=== PATIENT | female | born 1930 | race Caucasian/White ===

== ENCOUNTER 2019-06-15 14:59 | Emergency (ER) | payer OTHER ==
--- NOTE | 2019-06-15 15:04 | PDOC ---
Rapid Medical Evaluation Chief Complaint: Weakness Medical Evaluation: Allergies Allergy/AdvReac Type Severity Reaction Status Date / Time No Known Drug Allergies Allergy Verified 08/13/15 16:07 06/15/19 15:02 Patient had brief in-person examination in triage cc: bilateral ankle swelling x 3 dayswith nausea, abdominal bloating and tiredness HPI: alert and oriented x 3 unlabored breathing +2 bipedal edema orders: labs ordered This patient will proceed to ed for further evaluation Discharge Disposition - Diagnosis Ankle swelling - Referrals - Patient Instructions - Post Discharge Activity
[2019-06-15 15:05] VITALS: BMI 20.1
[2019-06-15 15:44] LABS: BASO % 0.7 % (0-2.0); EOS % 2.4 % (0-4.5); HEMATOCRIT 28.9 % (32.4-45.2); HEMOGLOBIN 9.8 GM/dL (10.7-15.3); MCH 33.4 pg (25.7-33.7); MCHC 33.9 g/dl (32.0-36.0); MEAN CELL VOLUME 98.6 fl (80-96); MEAN PLT VOLUME 8.6 fl (7.5-11.1); MONO % 10.5 % (3.8-10.2); NEUT % 63.4 % (42.8-82.8); PLATELET COUNT 212 K/MM3 (134-434); RBC 2.93 M/mm3 (3.60-5.2); RDW 12.6 % (11.6-15.6); WHITE BLOOD COUNT 5.5 K/mm3 (4.0-10.0)
[2019-06-15 16:09] LABS: ALBUMIN 3.8 g/dl (3.4-5.0); BILIRUBIN,TOTAL 0.4 mg/dL (0.2-1); BLOOD UREA NITROGEN 13.1 mg/dL (7-18); CALCIUM 8.8 mg/dL (8.5-10.1); POTASSIUM 3.6 mmol/L (3.5-5.1); TOT PROT 6.2 g/dl (6.4-8.2)
[2019-06-15 16:22] LABS: N-TERMINAL BNP 740.5 pg/ml (5-450)
[2019-06-15] MEDS ORDERED: ONDANSETRON 4 MG/2 ML VIAL IVPUSH ONE (16:32)
[2019-06-15] MEDS ORDERED: ONDANSETRON 4 MG/2 ML VIAL ONE (16:51)
--- NOTE | 2019-06-15 17:15 | PDOC ---
Documentation entered by Nisha Mojica SCRIBE, acting as scribe for Ariana Rosenthal MD. Ariana Rosenthal MD: This documentation has been prepared by the Galina melara Xhesika, SCRIBE, under my direction and personally reviewed by me in its entirety. I confirm that the documentation accurately reflects all work, treatment, procedures, and medical decision making performed by me. Attending Attestation - Resident Resident Name: Nicole Ratliff - ED Attending Attestation I have performed the following: I have examined & evaluated the patient, The case was reviewed & discussed with the resident, I agree w/resident's findings & plan, Exceptions are as noted - HPI HPI: 06/15/19 17:04 The patient is an 88 year old female with a significant PMH of hyperlipidemia, NIDDM, GERD, diverticulosis, and thyroid disease who presents to the emergency department for generalized weakness and diffuse abdominal pain for the past couple days. Patient states she endorses associated nausea and b/l ankle edema. Patient notes she is normally constipated, however, she took laxative and is still endorsing abdominal bloating. The patient denies chest pain, shortness of breath, headache and dizziness. Denies fever, chills, cough, vomiting, diarrhea and constipation. Denies dysuria , frequency, urgency and hematuria. Allergies: NKDA - Physicial Exam PE: GENERAL: Awake, alert, and fully oriented, in no acute distress HEAD: No signs of trauma EYES: PERRLA, EOMI, sclera anicteric, conjunctiva clear ENT: Auricles normal inspection, hearing grossly normal, nares patent, oropharynx clear without exudates. Moist mucosa NECK: Normal ROM, supple, no lymphadenopathy, JVD, or masses LUNGS: Breath sounds equal, clear to auscultation bilaterally. No wheezes, and no crackles HEART: Regular rate and rhythm, normal S1 and S2, no murmurs, rubs or gallops ABDOMEN: Soft, +BLQ tenderness, normoactive bowel sounds. No guarding, no rebound. No masses EXTREMITIES: Normal range of motion, 1+ pitting edema B/L ankles. No clubbing or cyanosis. No cords, erythema, or tenderness NEUROLOGICAL: Cranial nerves II through XII grossly intact. Normal speech, normal gait. Motor and sensation intact SKIN: Warm, dry, normal turgor, no rashes or lesions noted. - Medical Decision Making 06/15/19 16:35 Pt with minimal swelling to ankles B/L, but no SOB, cp. Also with lower abdominal tenderness and bloating, history of prior adhesions from appendectomy. Will plan on CT a/p to r/o SBO.
--- NOTE | 2019-06-15 18:37 | PDOC ---
History of Present Illness - General Chief Complaint: Weakness Stated Complaint: SENT BY PCP/WEAKNESS/EDEMA Time Seen by Provider: 06/15/19 15:40 History Source: Patient Exam Limitations: No Limitations - History of Present Illness Initial Comments: Pt is an 88 yo F, with PMH of colitis/ischemic bowel, HTN, DM, hypothyroidism, and CKD, who presents with LE edema, generalized fatigue, nausea, and abdominal bloating. Pt states she ran out of her levothyroxine 2 days ago, but endorses compliance of other home medication. Pt has been tolerating PO food and fluid intake, but has been eating less due to concern that she will have vomiting. Pt has constipation at baseline, and took a laxative 2 days ago which has given her small loose stools each day. Pt denies any fevers/chills, headache, vision changes, syncope, chest pain, palpitations, SOB, vomiting, abdominal pain, urinary symptoms, or leg swelling. Allergies: NKDA PCP: [facility] Social: Pt denies any cigarette, alcohol, or drug use. Pt denies any recent travel or sick contacts. Surgical: appendectomy and repair of adhesions (age 9 and 13, respectively) Family: no relevant history. 06/17/19 04:44 Past History - Travel Traveled outside of the country in the last 30 days: No Close contact w/someone who was outside of country & ill: No - Past Medical History Allergies/Adverse Reactions: Allergies Allergy/AdvReac Type Severity Reaction Status Date / Time No Known Drug Allergies Allergy Verified 06/15/19 15:05 Home Medications: Ambulatory Orders Aspirin 81 mg PO DAILY 03/09/14 Atenolol [Tenormin -] 25 mg PO HS 03/09/14 Cholecalciferol (Vitamin D3) [Vitamin D3] 1,000 unit PO DAILY 03/09/14 Enalapril Maleate [Vasotec -] 2.5 mg PO DAILY 03/09/14 Ranolazine [Ranexa -] 500 mg PO BID 03/09/14 Ezetimibe [Zetia] 10 mg PO HS 04/22/14 Pravastatin Sodium 10 mg PO DAILY 04/22/14 Famotidine [Pepcid -] 20 mg PO DAILY 03/02/15 Sertraline HCl [Zoloft -] 25 mg PO HS 03/02/15 Glimepiride [Glimepiride -] 1 mg PO DAILY 08/13/15 Levothyroxine [Synthroid -] 88 mcg PO ASDIR 08/13/15 Levothyroxine [Synthroid -] 75 mcg PO ASDIR 04/16/16 Diclofenac Sodium 75 mg PO BID #60 tablet.dr SINGLETON 2 07/20/16 Anemia: No (IRON DEF) Asthma: No Cancer: No Cardiac Disorders: Yes (LEAKY VALVE) CVA: No COPD: No CHF: No Dementia: No Diabetes: Yes (NIDDM) GI Disorders: Yes (GERD/DIVERTICULOSIS) Disorders: No HTN: Yes Hypercholesterolemia: Yes Liver Disease: No Seizures: No Thyroid Disease: Yes - Surgical History Abdominal Surgery: Yes (ADHESIONS IN THE COLON) Appendectomy: Yes Cardiac Surgery: No Cholecystectomy: No Lung Surgery: No Neurologic Surgery: No Orthopedic Surgery: No - Suicide/Smoking/Psychosocial Hx Smoking Status: No Smoking History: Never smoked Have you smoked in the past 12 months: No Number of Cigarettes Smoked Daily: 0 If you are a former smoker, when did you quit?: 30YRS AGO Information on smoking cessation initiated: No Hx Alcohol Use: No Drug/Substance Use Hx: No Substance Use Type: None Hx Substance Use Treatment: No Review of Systems - Review of Systems Able to Perform ROS?: Yes Is the patient limited Polish proficient: No Constitutional: Yes: Malaise, Weight Stable. No: Chills, Diaphoresis, Fever, Loss of Appetite, Weakness HEENTM: No: Blurred Vision, Double Vision, Nose Congestion, Throat Pain, Throat Swelling, Difficulty Swallowing Respiratory: No: Cough, Orthopnea, Shortness of Breath Cardiac (ROS): No: Chest Pain, Edema, Irregular Heart Rate, Lightheadedness, Palpitations, Syncope, Chest Tightness ABD/GI: Yes: See HPI, Abdominal Distended, Constipated, Diarrhea, Nausea. No: Blood Streaked Bowels, Poor Appetite, Poor Fluid Intake, Rectal Bleeding, Vomiting, Abdominal cramping : No: Burning, Dysuria, Pain, Urgency Musculoskeletal: No: Back Pain, Muscle Pain, Muscle Weakness Integumentary: No: Rash Neurological: No: Headache, Weakness, Unsteady Gait, Dizziness Psychiatric: No: Sleep Pattern Change, Change in Appetite Endocrine: No: Increased Urine, Change in Weight Hematologic/Lymphatic: No: Anemia, Blood Clots, Easy Bleeding, Easy Bruising All Other Systems: Reviewed and Negative *Physical Exam - Vital Signs Last Vital Signs Temp Pulse Resp BP Pulse Ox 98.3 F 77 19 170/73 98 06/15/19 15:02 06/15/19 15:02 06/15/19 15:02 06/15/19 15:02 06/15/19 15:02 - Physical Exam Comments: Vitals stable, pt afebrile. Pt in NAD, thin body habitus. Pt alert and oriented x3. manager wound generally intact, muscular strength and sensation intact. No midline spinal tenderness, step-offs, or crepitus. Head normocephalic, atraumatic. Eyes PERRLA, EOMI. Oropharynx without erythema or exudates, no LAD b/l. No nasal congestion, hearing intact. Clear heart sounds, S1/S2, no JVD, b/l pedal edema, or heart murmur. Clear lung sounds, no respiratory distress, wheezes, crackles, or accessory muscle use. +Periumbilical TTP. No increased stool burden palpated. No CVA tenderness to palpation, no rebound, no guarding. Abdomen soft, non-distended, and with normoactive bowel sounds. Skin without jaundice or rash. 06/17/19 04:53 ED Treatment Course - LABORATORY CBC & Chemistry Diagram: 06/15/19 15:20 06/15/19 15:10 - ADDITIONAL ORDERS Additional order review: Laboratory Results 06/15/19 06/15/19 15:20 15:10 Sodium 146 H Potassium 3.6 Chloride 108 H Carbon Dioxide 32 Anion Gap 6 L BUN 13.1 Creatinine 1.0 Est GFR (CKD-EPI)AfAm 59.08 Est GFR (CKD-EPI)NonAf 50.97 Random Glucose 132 H Calcium 8.8 Total Bilirubin 0.4 AST 15 ALT 17 Alkaline Phosphatase 62 Troponin I < 0.02 B-Natriuretic Peptide 740.5 H Total Protein 6.2 L Albumin 3.8 06/15/19 15:20 RBC 2.93 L MCV 98.6 H MCHC 33.9 RDW 12.6 D MPV 8.6 Neutrophils % 63.4 Lymphocytes % 23.0 D Monocytes % 10.5 H Eosinophils % 2.4 Basophils % 0.7 - RADIOLOGY Radiology Studies Ordered: Category Date Time Status ABDOMEN & PELVIS CT WITH CONTR [CT] Stat CT Scan 06/15/19 16:32 Ordered CHEST X-RAY PORTABLE* [RAD] Stat Radiology 06/15/19 16:52 Ordered - Medications Given in the ED: ED Medications Discontinued Medications Generic Name Dose Route Start Last Admin Trade Name Vamsi PRN Reason Stop Dose Admin Ondansetron HCl 4 mg 06/15/19 16:32 06/15/19 17:09 Zofran Injection IVPUSH 06/15/19 16:33 4 mg ONCE ONE Administration Medical Decision Making - Medical Decision Making Pt was seen at bedside, also will be seen by attending Dr. Rosenthal. Pt presenting with abdominal "bloating" and nausea, multiple abdominal surgeries in the past. Will evaluate with labs and CT abd/pelvis with PO and IV contrast to r/o obstruction. Provided 4 mg IV zofran for improvement of nausea. Will continue to reassess pt and monitor for symptomatic improvement. ECG: NSR, intervals WNL. No TWIs or significant ST segment changes. No prior ECG for comparison. 06/17/19 04:53 Labs WNL Pt drank PO contrast, pending CT abd/pelvis. Pt endorsed to night team (Dr. Jorge) to f/u results. 06/17/19 04:55 *DC/Admit/Observation/Transfer Diagnosis at time of Disposition: Ankle swelling Qualifiers: Laterality: unspecified laterality Qualified Code(s): M25.473 - Effusion, unspecified ankle Constipation Qualifiers: Constipation type: unspecified constipation type Qualified Code(s): K59.00 - Constipation, unspecified - Discharge Dispostion Disposition: HOME Condition at time of disposition: Stable - Referrals Referrals: Geovani Rabago MD [Primary Care Provider] - - Patient Instructions Printed Discharge Instructions: DI for Constipation Additional Instructions: You were evaluated in the emergency department for abdominal pain and ankle swelling. We evaluated your heart, medical history, lab values, and scanned your abdomen. We believe that you are safe to go home at this time. There were no signs of obstruction on your CT scan. Please continue to take the miralax, stool softener for the constipation, and be sure to drink plenty of water and eat a high fiber diet to help move your bowels. Please follow up with your primary care doctor within the next week. Please return to the Emergency Department if you develop high fevers, sharp abdominal pain that is intractable , or if you feel dizzy, fatigued, or are unable to eat anything. - Post Discharge Activity
--- NOTE | 2019-06-15 21:11 | PDOC ---
History of Present Illness - General Chief Complaint: Weakness Stated Complaint: SENT BY PCP/WEAKNESS/EDEMA Time Seen by Provider: 06/15/19 15:40 History Source: Patient, Family Past History - Past Medical History Allergies/Adverse Reactions: Allergies Allergy/AdvReac Type Severity Reaction Status Date / Time No Known Drug Allergies Allergy Verified 06/15/19 15:05 Home Medications: Ambulatory Orders Aspirin 81 mg PO DAILY 03/09/14 Atenolol [Tenormin -] 25 mg PO HS 03/09/14 Cholecalciferol (Vitamin D3) [Vitamin D3] 1,000 unit PO DAILY 03/09/14 Enalapril Maleate [Vasotec -] 2.5 mg PO DAILY 03/09/14 Ranolazine [Ranexa -] 500 mg PO BID 03/09/14 Ezetimibe [Zetia] 10 mg PO HS 04/22/14 Pravastatin Sodium 10 mg PO DAILY 04/22/14 Famotidine [Pepcid -] 20 mg PO DAILY 03/02/15 Sertraline HCl [Zoloft -] 25 mg PO HS 03/02/15 Glimepiride [Glimepiride -] 1 mg PO DAILY 08/13/15 Levothyroxine [Synthroid -] 88 mcg PO ASDIR 08/13/15 Levothyroxine [Synthroid -] 75 mcg PO ASDIR 04/16/16 Diclofenac Sodium 75 mg PO BID #60 tablet.dr SINGLETON 2 07/20/16 Anemia: No (IRON DEF) Asthma: No Cancer: No Cardiac Disorders: Yes (LEAKY VALVE) CVA: No COPD: No CHF: No Dementia: No Diabetes: Yes (NIDDM) GI Disorders: Yes (GERD/DIVERTICULOSIS) Disorders: No HTN: Yes Hypercholesterolemia: Yes Liver Disease: No Seizures: No Thyroid Disease: Yes - Surgical History Abdominal Surgery: Yes (ADHESIONS IN THE COLON) Appendectomy: Yes Cardiac Surgery: No Cholecystectomy: No Lung Surgery: No Neurologic Surgery: No Orthopedic Surgery: No - Suicide/Smoking/Psychosocial Hx Smoking Status: No Smoking History: Never smoked Have you smoked in the past 12 months: No Number of Cigarettes Smoked Daily: 0 If you are a former smoker, when did you quit?: 30YRS AGO Information on smoking cessation initiated: No Hx Alcohol Use: No Drug/Substance Use Hx: No Substance Use Type: None Hx Substance Use Treatment: No *Physical Exam - Vital Signs Last Vital Signs Temp Pulse Resp BP Pulse Ox 98.3 F 77 19 170/73 98 06/15/19 15:02 06/15/19 15:02 06/15/19 15:02 06/15/19 15:02 06/15/19 15:02 ED Treatment Course - LABORATORY CBC & Chemistry Diagram: 06/15/19 15:20 06/15/19 15:10 - ADDITIONAL ORDERS Additional order review: Laboratory Results 06/15/19 06/15/19 15:20 15:10 Sodium 146 H Potassium 3.6 Chloride 108 H Carbon Dioxide 32 Anion Gap 6 L BUN 13.1 Creatinine 1.0 Est GFR (CKD-EPI)AfAm 59.08 Est GFR (CKD-EPI)NonAf 50.97 Random Glucose 132 H Calcium 8.8 Total Bilirubin 0.4 AST 15 ALT 17 Alkaline Phosphatase 62 Troponin I < 0.02 B-Natriuretic Peptide 740.5 H Total Protein 6.2 L Albumin 3.8 06/15/19 15:20 RBC 2.93 L MCV 98.6 H MCHC 33.9 RDW 12.6 D MPV 8.6 Neutrophils % 63.4 Lymphocytes % 23.0 D Monocytes % 10.5 H Eosinophils % 2.4 Basophils % 0.7 - Medications Given in the ED: ED Medications Discontinued Medications Generic Name Dose Route Start Last Admin Trade Name Julianq PRN Reason Stop Dose Admin Ondansetron HCl 4 mg 06/15/19 16:32 06/15/19 17:09 Zofran Injection IVPUSH 06/15/19 16:33 4 mg ONCE ONE Administration *DC/Admit/Observation/Transfer Diagnosis at time of Disposition: Ankle swelling Qualifiers: Laterality: unspecified laterality Qualified Code(s): M25.473 - Effusion, unspecified ankle Constipation Qualifiers: Constipation type: unspecified constipation type Qualified Code(s): K59.00 - Constipation, unspecified - Discharge Dispostion Disposition: HOME Condition at time of disposition: Stable Decision to Admit order: No - Referrals Referrals: Geovani Rabago MD [Primary Care Provider] - - Patient Instructions Printed Discharge Instructions: DI for Constipation Additional Instructions: You were evaluated in the emergency department for abdominal pain and ankle swelling. We evaluated your heart, medical history, lab values, and scanned your abdomen. We believe that you are safe to go home at this time. There were no signs of obstruction on your CT scan. Please continue to take the miralax, stool softener for the constipation, and be sure to drink plenty of water and eat a high fiber diet to help move your bowels. Please follow up with your primary care doctor within the next week. Please return to the Emergency Department if you develop high fevers, sharp abdominal pain that is intractable , or if you feel dizzy, fatigued, or are unable to eat anything. - Post Discharge Activity
[2019-06-15 21:32] VITALS: BP 163/78; PULSE 88; TEMP 98.5
--- NOTE | 2019-06-16 05:21 | PDOC ---
*Physical Exam - Vital Signs Last Vital Signs Temp Pulse Resp BP Pulse Ox 98.5 F 88 19 163/78 98 06/15/19 21:31 06/15/19 21:31 06/15/19 21:31 06/15/19 21:31 06/15/19 15:02 ED Treatment Course - LABORATORY CBC & Chemistry Diagram: 06/15/19 15:20 06/15/19 15:10 - ADDITIONAL ORDERS Additional order review: 06/15/19 15:20 RBC 2.93 L MCV 98.6 H MCHC 33.9 RDW 12.6 D MPV 8.6 Neutrophils % 63.4 Lymphocytes % 23.0 D Monocytes % 10.5 H Eosinophils % 2.4 Basophils % 0.7 - Medications Given in the ED: ED Medications Discontinued Medications Generic Name Dose Route Start Last Admin Trade Name Freq PRN Reason Stop Dose Admin Ondansetron HCl 4 mg 06/15/19 16:32 06/15/19 17:09 Zofran Injection IVPUSH 06/15/19 16:33 4 mg ONCE ONE Administration Medical Decision Making - Medical Decision Making Sign out received from Dr. Ratliff. 88 y/o F with hx HTN, CKD, DM, hypothyroidism, prior abdominal surgery including adhesion lysis at age 13 s/p appendectomy p/w bloating, nausea, abdominal pain for two days. CT abdomen pelvis pending due to concern for obstruction. Baseline constipation, small loose stools for past two days. PO contrast administered at 1700. Hg baseline at 9.8. Plan: - CT abdomen/pelvis with oral/IV contrast - Fluid resuscitation if obstructive process on CT. - given Na 146, will replenish with LR or 1/2 NS if needed - If no obstructive process on CT, plan for discharge home. --- CT abdomen/pelvis negative for acute process. Discussed constipation management including continuing maalox, stool softeners, as well as high fiber diet and remaining hydrated. Plan for discharge home. *DC/Admit/Observation/Transfer Diagnosis at time of Disposition: Ankle swelling Qualifiers: Laterality: unspecified laterality Qualified Code(s): M25.473 - Effusion, unspecified ankle Constipation Qualifiers: Constipation type: unspecified constipation type Qualified Code(s): K59.00 - Constipation, unspecified - Discharge Dispostion Disposition: HOME Condition at time of disposition: Stable Decision to Admit order: No - Referrals Referrals: Geovani Rabago MD [Primary Care Provider] - - Patient Instructions Printed Discharge Instructions: DI for Constipation Additional Instructions: You were evaluated in the emergency department for abdominal pain and ankle swelling. We evaluated your heart, medical history, lab values, and scanned your abdomen. We believe that you are safe to go home at this time. There were no signs of obstruction on your CT scan. Please continue to take the miralax, stool softener for the constipation, and be sure to drink plenty of water and eat a high fiber diet to help move your bowels. Please follow up with your primary care doctor within the next week. Please return to the Emergency Department if you develop high fevers, sharp abdominal pain that is intractable , or if you feel dizzy, fatigued, or are unable to eat anything. - Post Discharge Activity
--- NOTE | 2019-06-16 09:30 | EKG ---
Test Reason : Blood Pressure : / mmHG Vent. Rate : 071 BPM Atrial Rate : 071 BPM P-R Int : 176 ms QRS Dur : 084 ms QT Int : 418 ms P-R-T Axes : 103 008 051 degrees QTc Int : 454 ms NORMAL SINUS RHYTHM SEPTAL INFARCT , AGE UNDETERMINED ABNORMAL ECG Confirmed by Jorge Veloz MD ([id number]) on 06/16/2019 9:30:08 AM Referred By: Confirmed By:Jorge Veloz MD
== END 2019-06-15 21:10 | disposition home or self-care (01) ==
LOC: JER 14:59
PROC: 3E033GC Introduction of Other Therapeutic Substance into Peripheral Vein, Percutaneous Approach (ICD-10-PCS; principal; 2019-06-15)
DX: K59.00 Constipation, unspecified (principal); M25.471 Effusion, right ankle; M25.472 Effusion, left ankle; I12.9 Hypertensive chronic kidney disease with stage 1 through stage 4 chronic kidney disease, or unspecified chronic kidney disease; E11.22 Type 2 diabetes mellitus with diabetic chronic kidney disease; N18.9 Chronic kidney disease, unspecified; Z79.4 Long term (current) use of insulin; E78.00 Pure hypercholesterolemia, unspecified; E03.9 Hypothyroidism, unspecified; D50.9 Iron deficiency anemia, unspecified
CPT/HCPCS: 36415; 74177-TC; 80053; 83880; 84484; 85025; 93005; 93010; 96374; 99282-25

== ENCOUNTER 2019-09-04 17:33 | Inpatient (IN) | payer OTHER ==
--- NOTE | 2019-09-04 17:52 | PDOC ---
Rapid Medical Evaluation Chief Complaint: Injury Time Seen by Provider: 09/04/19 17:45 Medical Evaluation: Allergies Allergy/AdvReac Type Severity Reaction Status Date / Time No Known Drug Allergies Allergy Verified 06/15/19 15:05 09/04/19 17:45 88 year old female unwitnessed fall at home, daughter reports that patient does not remember how she fell. patient reports hitting head and neck. bruising to left hand daughter reports that fall was 1 hour ago. PE: Patient alert ox3 A: elderly fall; head injury P: ct head/ c-spine left hand xray labs Discharge Disposition - Diagnosis Unwitnessed fall, Neck pain Head injury Qualifiers: Encounter type: initial encounter Qualified Code(s): S09.90XA - Unspecified injury of head, initial encounter - Referrals - Patient Instructions - Post Discharge Activity
--- NOTE | 2019-09-04 18:16 | PDOC ---
History of Present Illness - General Chief Complaint: Injury Stated Complaint: FALL Time Seen by Provider: 09/04/19 17:45 - History of Present Illness Initial Comments: 09/04/19 19:28 88 year old woman with a history of colitis, ischemic bowel, HTN, DM, hypothyroidism, CKD who presents with unwitnessed fall that occurred prior to arrival. She was found down in the basement withou any recollection of the fall. The patient was alone for approx 1 hour [facility]. The patient only complains L hand pain with brusing and hematoma and neck pain. The patient does not recall her symptoms at the time of the episode but currently denies chest pain, shortness of breath, abdominal pain, recent fever, dysuria, hematuria. diarrhea, constipation ROS GENERAL/CONSTITUTIONAL: No fever or chills. No weakness. CARDIOVASCULAR: No chest pain or shortness of breath RESPIRATORY: No cough, wheezing, or hemoptysis. GASTROINTESTINAL: No nausea, vomiting, diarrhea or constipation. GENITOURINARY: No dysuria, frequency, or change in urination. MUSCULOSKELETAL: + joint or muscle swelling or pain. + neck or back pain. SKIN: No rash NEUROLOGIC: No headache, vertigo, + possible loss of consciousness, or change in strength/sensation. GENERAL: Awake, alert, and fully oriented, in no acute distress HEAD: No signs of trauma, normocephalic, atraumatic EYES: PERRLA, EOMI, sclera anicteric, conjunctiva clear ENT: oropharynx clear without exudates. Moist mucosa NECK: Normal ROM, supple LUNGS: No distress, speaks full sentences, clear to auscultation bilaterally HEART: Regular rate and rhythm, normal S1 and S2, no murmurs, rubs or gallops, peripheral pulses normal and equal bilaterally. ABDOMEN: Soft, nontender No guarding, no rebound. No masses EXTREMITIES : Normal inspection, Normal range of motion, no edema. No clubbing or cyanosis. NEUROLOGICAL: Cranial nerves II through XII grossly intact. Normal speech, no focal sensorimotor deficits SKIN: Warm, Dry, normal turgor, no rashes or lesions noted MDM DDX including but not limited to: r/o acs vs infectious vs electroylte r/o fx vs intracranil bleed ED Course: labs significant for hypokalemia repletion with po and iv ekg: nsr at 70bpm, no st elevation, QTc at 373 no prior to compare patient with recurrent on pain onreassessment CT head and cervical spine negative will give toradol, lido patch pelvis, cxr, L hand xr with no acute pathology, fx or dislocation plan for admission for syncope, falls, hypokalemia Maggie Badillo, PGY2 Emergency Medicine Past History - Past Medical History Allergies/Adverse Reactions: Allergies Allergy/AdvReac Type Severity Reaction Status Date / Time No Known Drug Allergies Allergy Verified 09/04/19 17:45 Home Medications: Ambulatory Orders Aspirin 81 mg PO DAILY 03/09/14 Enalapril Maleate [Vasotec -] 2.5 mg PO DAILY 03/09/14 Ranolazine [Ranexa -] 500 mg PO BID 03/09/14 Ezetimibe [Zetia] 10 mg PO HS 04/22/14 Famotidine [Pepcid -] 20 mg PO BID 03/02/15 Cholecalciferol (Vitamin D3) [Vitamin D3] 25 mcg PO DAILY 09/04/19 Furosemide [Lasix -] 20 mg PO DAILY 09/04/19 Levothyroxine [Synthroid -] 50 mcg PO DAILY 09/04/19 Metoprolol Succinate [Toprol Xl] 25 mg PO DAILY 09/04/19 Pioglitazone HCl [Actos] 15 mg PO DAILY 09/04/19 Rosuvastatin [Crestor -] 5 mg PO HS 09/04/19 Anemia: No (IRON DEF) Asthma: No Cancer: No Cardiac Disorders: Yes (LEAKY VALVE) CVA: No COPD: No CHF: No Dementia: No Diabetes: Yes (NIDDM) GI Disorders: Yes (GERD/DIVERTICULOSIS) Disorders: No HTN: Yes Hypercholesterolemia: Yes Liver Disease: No Seizures: No Thyroid Disease: Yes - Surgical History Abdominal Surgery: Yes (ADHESIONS IN THE COLON) Appendectomy: Yes Cardiac Surgery: No Cholecystectomy: No Lung Surgery: No Neurologic Surgery: No Orthopedic Surgery: No - Immunization History Immunization Up to Date: Yes - Psycho Social/Smoking Cessation Hx Smoking Status: No Smoking History: Never smoked Have you smoked in the past 12 months: No Number of Cigarettes Smoked Daily: 0 If you are a former smoker, when did you quit?: 30YRS AGO Hx Alcohol Use: No Drug/Substance Use Hx: No Substance Use Type: None Hx Substance Use Treatment: No *Physical Exam - Vital Signs Last Vital Signs Temp Pulse Resp BP Pulse Ox 98.1 F 69 16 218/74 H 98 09/04/19 17:46 09/04/19 17:46 09/04/19 17:46 09/04/19 17:46 09/04/19 17:46 ED Treatment Course - LABORATORY CBC & Chemistry Diagram: 09/04/19 18:11 09/04/19 18:11 - RADIOLOGY Radiology Studies Ordered: Category Date Time Status PELVIS [RAD] Stat Radiology 09/04/19 18:14 Ordered Discharge - Discharge Information Problems reviewed: Yes Clinical Impression/Diagnosis: Unwitnessed fall, Neck pain, Hypokalemia Head injury Qualifiers: Encounter type: initial encounter Qualified Code(s): S09.90XA - Unspecified injury of head, initial encounter Condition: Stable - Admission Yes - Follow up/Referral Referrals: Stuart Davis MD [Primary Care Provider] - - Patient Discharge Instructions - Post Discharge Activity
[2019-09-04 18:45] LABS: BASO % 0.9 % (0-2.0); EOS % 2.7 % (0-4.5); HEMATOCRIT 33.2 % (32.4-45.2); HEMOGLOBIN 11.1 GM/dL (10.7-15.3); LYMPH % 19.4 % (8-40); MCH 32.3 pg (25.7-33.7); MCHC 33.4 g/dl (32.0-36.0); MEAN CELL VOLUME 96.5 fl (80-96); MEAN PLT VOLUME 9.1 fl (7.5-11.1); MONO % 11.5 % (3.8-10.2); NEUT % 65.5 % (42.8-82.8); PLATELET COUNT 231 K/MM3 (134-434); RBC 3.44 M/mm3 (3.60-5.2); RDW 12.3 % (11.6-15.6); WHITE BLOOD COUNT 5.9 K/mm3 (4.0-10.0)
[2019-09-04] MEDS ORDERED: ACETAMINOPHEN 325 MG TABLET (FP) PO ONE (19:11)
[2019-09-04 19:17] LABS: ALBUMIN 3.9 g/dl (3.4-5.0); ALK PHOS 69 U/L (45-117); ANION GAP 6 MMOL/L (8-16); BILIRUBIN,TOTAL 0.4 mg/dL (0.2-1); BLOOD UREA NITROGEN 12.4 mg/dL (7-18); CALCIUM 8.9 mg/dL (8.5-10.1); CHLORIDE 100 mmol/L (98-107); CO2 36 mmol/L (21-32); CREATININE 0.8 mg/dL (0.55-1.3); GLUCOSE,RANDOM 134 mg/dL (74-106); SGOT/AST 13 U/L (15-37); SGPT/ALT 16 U/L (13-61); SODIUM 141 mmol/L (136-145); TOT PROT 6.5 g/dl (6.4-8.2)
[2019-09-04 19:22] LABS: POTASSIUM 2.7 mmol/L (3.5-5.1)
[2019-09-04] MEDS ORDERED: POTASSIUM CHLORIDE TABS 10 MEQ TABLET.ER (FP) PO ONE (19:23)
[2019-09-04] MEDS ORDERED: POTASSIUM CHLORIDE 20 MEQ PREMIX IVPB 100 ML IVPB ONE (19:28)
[2019-09-04] MEDS ORDERED: METHOCARBAMOL 500 MG TABLET PO ONE (20:25)
[2019-09-04] MEDS ORDERED: LIDOCAINE 5% TOPICAL PATCH TP ONE (20:25)
[2019-09-04] MEDS ORDERED: KETOROLAC TROMETHAMINE 15 MG/ML VIAL IVPUSH ONE (20:25)
[2019-09-04] MEDS ORDERED: METHOCARBAMOL 500 MG TABLET ONE (21:27)
[2019-09-04] MEDS ORDERED: ACETAMINOPHEN 325 MG TABLET (FP) ONE (21:27)
[2019-09-04] MEDS ORDERED: KETOROLAC TROMETHAMINE 15 MG/ML VIAL ONE (21:28)
[2019-09-04] MEDS ORDERED: POTASSIUM CHLORIDE TABS 20 MEQ TABLET.ER (FP) PO ONE (21:28)
[2019-09-04] MEDS ORDERED: KCL IVPB ONE (21:29)
[2019-09-04 22:05] LABS: MAGNESIUM 1.9 mg/dL (1.8-2.4); PHOSPHOROUS 2.7 mg/dL (2.5-4.9)
[2019-09-04] MEDS: LIDOCAINE PATCH REMOVAL MC SCH (22:38)
[2019-09-05] MEDS ORDERED: SODIUM CHLORIDE 1,000 ML IV SCH (01:00)
--- NOTE | 2019-09-05 01:12 | PN ---
Teaching Attending Note Name of Resident: Ivana Machuca ATTENDING PHYSICIAN STATEMENT I saw and evaluated the patient. I reviewed the resident's note and discussed the case with the resident. I agree with the resident's findings and plan as documented. SUBJECTIVE: 88 year old woman with a history of ischemic bowel, HTN, DM, hypothyroidism, CKD presents status post fall on 09/04/2019. Limited recollection about fall from patient. Generally a very poor historian. Fall was unwitnessed, Suspected to have possibly hit her head during her fall. OBJECTIVE: Last Vital Signs Temp Pulse Resp BP Pulse Ox 98.1 F 73 17 195/73 H 99 09/04/19 17:46 09/05/19 00:28 09/05/19 00:28 09/05/19 00:28 09/05/19 00:28 GENERAL: Elderly, frail, not in acute distress HEENT: Normocephalic, atraumatic. PERRLA, EOMI. No conjunctival pallor. Sclera are non- icteric. Moist mucous membranes. NECK: Supple. Full ROM. No JVD. Carotid pulses 2+ and symmetric, without bruits. No thyromegaly. No lymphadenopathy. CARDIOVASCULAR: Regular rate and rhythm. No murmurs, rubs, or gallops. Distal pulses are 2+ and symmetric. PULMONARY: No evidence of respiratory distress. Lungs clear to auscultation bilaterally. No wheezing, rales or rhonchi. ABDOMINAL: Soft. Non-tender. Non-distended. No rebound or guarding. No organomegaly. Normoactive bowel sounds. MUSCULOSKELETAL Normal range of motion at all joints. No bony deformities or tenderness. No CVA tenderness. EXTREMITIES: Left hand swelling, ecchymosis SKIN: Warm and dry. Normal capillary refill. No rashes. No jaundice. PSYCHIATRIC: Cooperative. Good eye contact. Appropriate mood and affect. Abnormal Lab Results 09/04/19 09/04/19 09/05/19 18:11 18:11 00:19 RBC 3.44 L MCV 96.5 H Monocytes % 11.5 H Potassium 2.7 L* 3.1 L Carbon Dioxide 36 H Anion Gap 6 L Random Glucose 134 H AST 13 L Urine Nitrite Ur Leukocyte Esterase 09/05/19 01:17 RBC MCV Monocytes % Potassium Carbon Dioxide Anion Gap Random Glucose AST Urine Nitrite Positive H Ur Leukocyte Esterase 2+ H Imaging reviewed, head CT and C-spine CT did not show any evidence of fracture Left hand x-ray grossly negative for fracture on my review but no report available Pelvis x-ray was reviewed ASSESSMENT AND PLAN: 88-year-old woman status post fall with possible syncope, hypokalemia without any EKG changes. Imaging of head neck, pelvis, left hand grossly negative for fractures however should await official radiology reports Telemetry observation Bed rest and fall precautions Tylenol PRN for pain PT evaluation Follow-up official imaging study reports Transthoracic echo Check orthostatics #Hypokalemiaimproved to 3.1 after supplementation We will monitor on groundwater monitoring technician Supplement potassium until normalized #Abnormal mental statussuspect may be underlying dementia, unknown baseline. Head CT was negative for any acute findings, TSH was normal #Severe asymptomatic hypertensionnoted to be on furosemide, enalapril, Toprol- XL Resume home medications listed above If positive orthostatics would hold furosemide at this time Salt restriction Titrate medication dosage as needed #DVT prophylaxisheparin subcutaneously
[2019-09-05 01:28] LABS: HYALINE CASTS 3 /lpf (0-8); PH,URINE 7.5 (5.0-8.0); URINE APPEARANCE CLOUDY; URINE BACTERIA 1528.2 /hpf (NEGATIVE); URINE BILIRUBIN NEGATIVE (NEGATIVE); URINE COLOR YELLOW; URINE GLUCOSE (UA) NEGATIVE (NEGATIVE); URINE KETONE NEGATIVE (NEGATIVE); URINE LEUK ESTERASE 2+ (NEGATIVE); URINE NITRITE POSITIVE (NEGATIVE); URINE PROTEIN NEGATIVE (NEGATIVE)
[2019-09-05 01:29] LABS: POTASSIUM 3.1 mmol/L (3.5-5.1)
--- NOTE | 2019-09-05 01:34 | PDOC ---
Documentation entered by Kevin De Los Santos SCRIBE, acting as scribe for Veronica Mckinney MD. Veronica Mckinney MD: This documentation has been prepared by the Filiberto melara Daniel, SCRIBE, under my direction and personally reviewed by me in its entirety. I confirm that the documentation accurately reflects all work, treatment, procedures, and medical decision making performed by me. Attending Attestation - Resident Resident Name: Maggie Badillo - ED Attending Attestation I have performed the following: I have examined & evaluated the patient, The case was reviewed & discussed with the resident, I agree w/resident's findings & plan, Exceptions are as noted - HPI HPI: 09/04/19 19:24 The patient is a 88 year old females with a significant past medical history of colitis, ischemic bowel, diabetes, hypertension, hypothyroidism, and CKD who presents to the ED s/p fall, with left hand and neck pain. Patient was found in the basement 1 hour after her unwitnessed fall and states that she was unable to stand back up by herself. Patient also states that she does not remember falling. Patient is currently complaining of neck pain and left hand pain. Denies shortness of breath, chest pain, abdominal pain, dysuria. No illness, no recent travel. Allergies: NKDA - Physicial Exam PE: 09/05/19 01:31 awake alert nad head atraumatic. no mildline cervical spine tenderness. paraspinal cervical tenderness. lungs clear bilat heart rrr no mrg abd soft nt nd ext wwp. no edema. no calf tenderness. left hand with eccymosis dorsum of hand. - Medical Decision Making 09/05/19 01:32 88 yo s/p fall, possible syncope unknown loc. plan cxr egk labs ct head ct cervical spine. xrays negative for fracture of pelvis, cxr and left hand. all negative. admitted for telemetry ro dysrhtymia, for syncope. Heart Score/ECG Review #1 General ECG Interpretation: Sinus Rhythm, Normal Rate (70), Normal Intervals, No acute ischemic changes
--- NOTE | 2019-09-05 01:51 | HP ---
CHIEF COMPLAINT: s/p fall PCP: Dr. Frausto HISTORY OF PRESENT ILLNESS: 88F w/ pmhx of colitis, ischemic bowel, HTN, DM, hyperthyroidism, CKD presents in the ED s/p fall. Grandson present at bedside. Pt states she was going upstairs from the basement when she found herself sitting down on the steps. She does not remember if she fell, but she does recall getting up herself and walking up to the kitchen after this episode. Denies any fall episodes in the past. Denies any prodromal symptoms prior to the fall (murillo/d, vision changes, chest pain, sob, abd pain, tongue biting). When she woke up she noticed her L hand was bruised as well, but denied any pain on her L hand. 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 She was recently placed on a new medication for her pain, but does not recall the name of the medication. Additionally, she complains of frequent urination and urge incontinence. ER course was notable for: (1) K 2.7, Trop neg x1 (2) IV and PO KCl, Lidoderm patch, IV Toradol given (3) Head CT showed neg for acute IC pathology, mild to mod periventricular chronic microvascular ischemic changes, no change since 08/13/15. CT C-spine neg. Recent Travel: Denies PAST MEDICAL HISTORY: As per HPI PAST SURGICAL HISTORY: mastoidectomy appendectomy b/l mastectomy and reconstruction (due to fibrocystic breasts) Social History: Smoking: Quit at age 52, used to smoke 1 PPD since 22 years old Alcohol: Denies Drugs: Denies Used to work at a [employer], also formerly a hairdresser Lives with daughter at home Allergies No Known Drug Allergies Allergy (Verified 09/04/19 17:45) HOME MEDICATIONS: Home Medications Medication Instructions Recorded Aspirin 81 mg PO DAILY 03/09/14 Enalapril Maleate [Vasotec -] 2.5 mg PO DAILY 03/09/14 Ranolazine [Ranexa -] 500 mg PO BID 03/09/14 Ezetimibe [Zetia] 10 mg PO HS 04/22/14 Famotidine [Pepcid -] 20 mg PO BID 05/13/15 Cholecalciferol (Vitamin D3) 25 mcg PO DAILY 09/04/19 [Vitamin D3] Furosemide [Lasix -] 20 mg PO DAILY 09/04/19 Levothyroxine [Synthroid -] 50 mcg PO DAILY 09/04/19 Metoprolol Succinate [Toprol Xl] 25 mg PO DAILY 09/04/19 Pioglitazone HCl [Actos] 15 mg PO DAILY 09/04/19 Rosuvastatin [Crestor -] 5 mg PO HS 09/04/19 REVIEW OF SYSTEMS CONSTITUTIONAL: Absent: fever, chills, diaphoresis, generalized weakness, malaise, loss of appetite, weight change HEENT: +headache, neck pain Absent: rhinorrhea, nasal congestion, throat pain, throat swelling, difficulty swallowing, mouth swelling, ear pain, eye pain, visual changes CARDIOVASCULAR: Absent: chest pain, syncope, palpitations, irregular heart rate, lightheadedness , peripheral edema RESPIRATORY: Absent: cough, shortness of breath, dyspnea with exertion, orthopnea, wheezing, stridor, hemoptysis GASTROINTESTINAL: +chronic constipation Absent: abdominal pain, abdominal distension, nausea, vomiting, diarrhea, melena, hematochezia GENITOURINARY: Absent: dysuria, frequency, urgency, hesitancy, hematuria, flank pain, genital pain MUSCULOSKELETAL: Absent: myalgia, arthralgia, joint swelling, back pain, neck pain SKIN: +L hand contusion Absent: rash, itching, pallor HEMATOLOGIC/IMMUNOLOGIC: Absent: easy bleeding, easy bruising, lymphadenopathy, frequent infections ENDOCRINE: Absent: unexplained weight gain, unexplained weight loss, heat intolerance, cold intolerance NEUROLOGIC: Absent: headache, focal weakness or paresthesias, dizziness, unsteady gait, seizure, mental status changes, bladder or bowel incontinence PSYCHIATRIC: Absent: anxiety, depression, suicidal or homicidal ideation, hallucinations. PHYSICAL EXAMINATION Vital Signs - 24 hr 09/04/19 09/05/19 17:46 00:28 Temperature 98.1 F Pulse Rate 69 Pulse Rate [ 73 Left Radial] Respiratory 16 17 Rate Blood Pressure 218/74 H Blood Pressure 195/73 H [Left Arm] O2 Sat by Pulse 98 99 Oximetry (%) GENERAL: Pleasant, well-appearing female, NAD. AAOx3. HEENT: AT/NC. EOMI. MMM. Facial symmetrical. B/l facial sensation intact. NECK: Normal range of motion, supple without lymphadenopathy, JVD, or masses. LUNGS: Fine crackles in bibasilar bases. Symmetric chest rise. Good air entry. No wheezes noted. HEART: RRR. Normal S1, S2. No murmurs noted. ABDOMEN: Soft, NT/ND. Normoactive BS in all 4Qs. No masses, bruises, deformities noted. MUSCULOSKELETAL: Normal range of motion at all joints. No bony deformities or tenderness. No CVA tenderness. UPPER EXTREMITIES: 2+ pulses, warm, well-perfused. No cyanosis. No clubbing. L hand hematoma with smelling, no tenderness or visible wound seen. 5/5 muscle strength in b/l extremities. Sensation intact. LOWER EXTREMITIES: 2+ dorsalis pedis pulses, warm, well-perfused. No calf tenderness. No peripheral edema. 5/5 muscle strength in b/l LE. Sensation intact. NEUROLOGICAL: Cranial nerves II-XII intact. Normal speech. PSYCHIATRIC: Cooperative. Good eye contact. Appropriate mood and affect. Laboratory Results - last 24 hr 09/04/19 09/04/19 09/04/19 18:11 18:11 18:11 WBC 5.9 RBC 3.44 L Hgb 11.1 Hct 33.2 MCV 96.5 H MCH 32.3 MCHC 33.4 RDW 12.3 Plt Count 231 MPV 9.1 Absolute Neuts (auto) 3.9 Neutrophils % 65.5 Lymphocytes % 19.4 Monocytes % 11.5 H Eosinophils % 2.7 Basophils % 0.9 Nucleated RBC % 0 Sodium 141 Potassium 2.7 L* Chloride 100 Carbon Dioxide 36 H Anion Gap 6 L BUN 12.4 Creatinine 0.8 Est GFR (CKD-EPI)AfAm 77.37 Est GFR (CKD-EPI)NonAf 66.76 Random Glucose 134 H Calcium 8.9 Phosphorus Magnesium 1.9 Total Bilirubin 0.4 AST 13 L ALT 16 Alkaline Phosphatase 69 Creatine Kinase 94 Troponin I < 0.02 Total Protein 6.5 Albumin 3.9 TSH Urine Color Urine Appearance Urine pH Ur Specific [place] Urine Protein Urine Glucose (UA) Urine Ketones Urine Blood Urine Nitrite Urine Bilirubin Urine Urobilinogen Ur Leukocyte Esterase Urine WBC (Auto) Urine Casts (Auto) U Epithel Cells (Auto) Urine Bacteria (Auto) 09/04/19 09/05/19 09/05/19 21:15 00:19 01:17 WBC RBC Hgb Hct MCV MCH MCHC RDW Plt Count MPV Absolute Neuts (auto) Neutrophils % Lymphocytes % Monocytes % Eosinophils % Basophils % Nucleated RBC % Sodium Potassium 3.1 L Chloride Carbon Dioxide Anion Gap BUN Creatinine Est GFR (CKD-EPI)AfAm Est GFR (CKD-EPI)NonAf Random Glucose Calcium Phosphorus 2.7 Magnesium 1.9 Total Bilirubin AST ALT Alkaline Phosphatase Creatine Kinase Troponin I 0.02 Total Protein Albumin TSH 0.93 Urine Color Yellow Urine Appearance Cloudy Urine pH 7.5 D Ur Specific [place] 1.027 Urine Protein Negative Urine Glucose (UA) Negative Urine Ketones Negative Urine Blood Negative Urine Nitrite Positive H Urine Bilirubin Negative Urine Urobilinogen 1.0 Ur Leukocyte Esterase 2+ H Urine WBC (Auto) 34 Urine Casts (Auto) 3 U Epithel Cells (Auto) 1.0 Urine Bacteria (Auto) 1528.2 EKG showed NSR, LVH, No ST-T changes or evid of ischemic changes, HR 70 ASSESSMENT/PLAN: 88F w/ pmhx of colitis, ischemic bowel, HTN, DM, hyperthyroidism, CKD presents in the ED s/p fall. #Syncope; s/p fall. -Head CT and CT C-spine neg; Hip/pelvis xray, hand xray pending -Tylenol PRN for pain -recheck orthostatics -Echo ordered -Fall precautions/bedrest/PT eval -tele obs -Trops neg x2 #Hypokalemia; Initial 2.7, after repleted, now 3.1 -May be medication-induced as pt currently is on Lasix -replete PRN and recheck K+ -Hold home Lasix for now; may need to be discharged with KCl supplementation once Lasix is resumed #HTN/HLD; Cont home meds: Toprol XL 25, Enalapril 2.5, Crestor 5, Ranexa 500 BID , Zetia 10. Hold home Lasix in setting of hypokalemia. -BP initially elevated upon arrival. Home dose of Toprol XL 25 given repeat BP 161/78. Given borderline heart rate, will hold home Toprol for now and start Amlo 5. #Hypothyroidism; Cont home med: Synthroid 125 mcg #DM; Hold home oral DM meds. BGM/ISS ACHS #Prophylaxis DVT: Lovenox GI: Cont home Pepcid #FEN -NS @ 75 -recheck K in AM -Diabetic/Sodium-controlled diet Dispo -tele obs Visit type - Emergency Visit Emergency Visit: Yes ED Registration Date: 09/04/19 Care time: The patient presented to the Emergency Department on the above date and was hospitalized for further evaluation of their emergent condition. - New Patient This patient is new to me today: Yes Date on this admission: 09/05/19 - Critical Care Critical Care patient: No ATTENDING PHYSICIAN STATEMENT I saw and evaluated the patient. I reviewed the resident's note and discussed the case with the resident. I agree with the resident's findings and plan as documented. SUBJECTIVE: OBJECTIVE: ASSESSMENT AND PLAN:
[2019-09-05 02:35] VITALS: BMI 19.7
[2019-09-05 02:57] LABS: URINE RBC 20.1 /hpf (0-4); URINE WBC 34 /hpf (0-5)
[2019-09-05] MEDS ORDERED: metoPROLOL SUCCINATE 25 MG TAB.SR.24H (FP) PO ONE (02:58)
[2019-09-05] MEDS: LEVOTHYROXINE NA 50 MCG TABLET (FP) PO SCH (06:21)
[2019-09-05] MEDS: INSULIN SLIDING SCALE (NOVOLOG) 1 VIAL SQ SCH ×4 (06:21→22:14)
[2019-09-05] MEDS ORDERED: amLODIPine BESYLATE 5 MG TABLET (FP) PO ONE (06:24)
[2019-09-05] MEDS ORDERED: HEPARIN NA (PORCINE) 5,000 UNITS/ML 1ML VIAL SQ SCH (06:30)
[2019-09-05 08:49] LABS: BASO % 0.9 % (0-2.0); EOS % 3.1 % (0-4.5); HEMATOCRIT 31.9 % (32.4-45.2); HEMOGLOBIN 10.8 GM/dL (10.7-15.3); LYMPH % 25.6 % (8-40); MCH 32.6 pg (25.7-33.7); MEAN CELL VOLUME 95.8 fl (80-96); MEAN PLT VOLUME 9.3 fl (7.5-11.1); MONO % 10.6 % (3.8-10.2); NEUT % 59.8 % (42.8-82.8); PLATELET COUNT 221 K/MM3 (134-434); RBC 3.33 M/mm3 (3.60-5.2); RDW 12.4 % (11.6-15.6); WHITE BLOOD COUNT 6.7 K/mm3 (4.0-10.0)
[2019-09-05 08:52] LABS: BLOOD UREA NITROGEN 9.9 mg/dL (7-18); CALCIUM 8.5 mg/dL (8.5-10.1); CREATININE 0.7 mg/dL (0.55-1.3); MAGNESIUM 1.8 mg/dL (1.8-2.4); PHOSPHOROUS 2.8 mg/dL (2.5-4.9); POTASSIUM 3.1 mmol/L (3.5-5.1)
[2019-09-05] MEDS ORDERED: PT OWN MED DRAWER 7, Y5N ONE ×3 (09:25→13:09)
[2019-09-05] MEDS ORDERED: DEXTROSE 5%-WATER - 50 ML IVPB ONE (09:26)
[2019-09-05] MEDS ORDERED: cefTRIAXone SODIUM 1 GM VIAL ONE (09:26)
[2019-09-05] MEDS: POTASSIUM CHLORIDE TABS 20 MEQ TABLET.ER (FP) PO SCH (09:55)
[2019-09-05] MEDS: HEPARIN NA (PORCINE) 5,000 UNITS/ML 1ML VIAL SQ SCH ×2 (09:56→22:12)
[2019-09-05] MEDS: FAMOTIDINE 20 MG TABLET PO SCH ×2 (09:56→22:13)
[2019-09-05] MEDS: CHOLECALCIFEROL (VIT D3) 1,000 UNIT (25 MCG) TABLET PO SCH (09:56)
[2019-09-05] MEDS ORDERED: ENOXAPARIN NA (PORCINE) 40 MG/0.4 ML DISP.SYRIN SQ SCH (10:00)
[2019-09-05] MEDS ORDERED: metoPROLOL SUCCINATE 25 MG TAB.SR.24H (FP) PO SCH (10:00)
[2019-09-05] MEDS: CEFTRIAXONE 1 GM in DEXTROSE 5%-WATER - 50 ML IVPB SCH (10:24)
[2019-09-05] MEDS: RANOLAZINE E.R. 500 MG TABLET (FP) PO SCH ×2 (10:25→22:13)
[2019-09-05] MEDS: ACETAMINOPHEN 325 MG TABLET (FP) PO PRN ×2 (12:16→18:19)
[2019-09-05] MEDS: ENALAPRIL MALEATE 2.5 MG TABLET (FP) PO SCH (13:11)
--- NOTE | 2019-09-05 13:40 | PN ---
Physical Exam: SUBJECTIVE: Patient seen and examined, reports some headache. states was climbing up the stairs, the next thing she recalls is being on the floor, but did not fall down the stairs. Denies any chest pain, palpitations, dizziness, dyspnea around the episode. However, does endorse weakness over last 2-3 days, and urinary symptoms, frequent scant urination. But no fevers, chills or abdominal pain. OBJECTIVE: Vital Signs Period Temp Pulse Resp BP Sys/Alexander Pulse Ox Last 24 Hr 98.1 F-99 F 59-73 16-20 143-218/68-105 96-99 Intake & Output 09/02/19 09/03/19 09/04/19 09/05/19 23:59 23:59 23:59 23:59 Intake Total 10 Balance 10 Weight 112 lb 108 lb GENERAL: lying in bed in no acute distress Neck: soft, supple Chest: CTAB, no rales or wheezing Abdomen:Soft, NT, ND, no CVA or suprapubic tenderness Extremities; left hand dorsal ecchymosis, full ROM, no tenderness, no edema otherwise CVS:S1s2 regular neuro: AAO, oriented to self, place, knows is August but not to year, facial symmetry, tongue midline, EOMI, PERRL, speech normal, power 5/5 Laboratory Results - last 24 hr 09/04/19 09/04/19 09/04/19 18:11 18:11 18:11 WBC 5.9 RBC 3.44 L Hgb 11.1 Hct 33.2 MCV 96.5 H MCH 32.3 MCHC 33.4 RDW 12.3 Plt Count 231 MPV 9.1 Absolute Neuts (auto) 3.9 Neutrophils % 65.5 Lymphocytes % 19.4 Monocytes % 11.5 H Eosinophils % 2.7 Basophils % 0.9 Nucleated RBC % 0 Sodium 141 Potassium 2.7 L* Chloride 100 Carbon Dioxide 36 H Anion Gap 6 L BUN 12.4 Creatinine 0.8 Est GFR (CKD-EPI)AfAm 77.37 Est GFR (CKD-EPI)NonAf 66.76 POC Glucometer Random Glucose 134 H Calcium 8.9 Phosphorus Magnesium 1.9 Total Bilirubin 0.4 AST 13 L ALT 16 Alkaline Phosphatase 69 Creatine Kinase 94 Troponin I < 0.02 Total Protein 6.5 Albumin 3.9 Vitamin B12 Serum Folate TSH Urine Color Urine Appearance Urine pH Ur Specific [place] Urine Protein Urine Glucose (UA) Urine Ketones Urine Blood Urine Nitrite Urine Bilirubin Urine Urobilinogen Ur Leukocyte Esterase Urine WBC (Auto) Urine RBC (Auto) Urine Casts (Auto) U Epithel Cells (Auto) Urine Bacteria (Auto) 09/04/19 09/05/19 09/05/19 21:15 00:19 01:17 WBC RBC Hgb Hct MCV MCH MCHC RDW Plt Count MPV Absolute Neuts (auto) Neutrophils % Lymphocytes % Monocytes % Eosinophils % Basophils % Nucleated RBC % Sodium Potassium 3.1 L Chloride Carbon Dioxide Anion Gap BUN Creatinine Est GFR (CKD-EPI)AfAm Est GFR (CKD-EPI)NonAf POC Glucometer Random Glucose Calcium Phosphorus 2.7 Magnesium 1.9 Total Bilirubin AST ALT Alkaline Phosphatase Creatine Kinase Troponin I 0.02 Total Protein Albumin Vitamin B12 Serum Folate TSH 0.93 Urine Color Yellow Urine Appearance Cloudy Urine pH 7.5 D Ur Specific [place] 1.027 Urine Protein Negative Urine Glucose (UA) Negative Urine Ketones Negative Urine Blood Negative Urine Nitrite Positive H Urine Bilirubin Negative Urine Urobilinogen 1.0 Ur Leukocyte Esterase 2+ H Urine WBC (Auto) 34 Urine RBC (Auto) 20.1 Urine Casts (Auto) 3 U Epithel Cells (Auto) 1.0 Urine Bacteria (Auto) 1528.2 09/05/19 09/05/19 09/05/19 02:14 05:53 06:40 WBC RBC Hgb Hct MCV MCH MCHC RDW Plt Count MPV Absolute Neuts (auto) Neutrophils % Lymphocytes % Monocytes % Eosinophils % Basophils % Nucleated RBC % Sodium 144 Potassium 3.1 L Chloride 104 Carbon Dioxide 34 H Anion Gap 6 L BUN 9.9 Creatinine 0.7 Est GFR (CKD-EPI)AfAm 90.93 Est GFR (CKD-EPI)NonAf 78.45 POC Glucometer 123 108 Random Glucose 95 Calcium 8.5 Phosphorus 2.8 Magnesium 1.8 Total Bilirubin AST ALT Alkaline Phosphatase Creatine Kinase Troponin I Total Protein Albumin Vitamin B12 383 Serum Folate 19 H TSH Urine Color Urine Appearance Urine pH Ur Specific [place] Urine Protein Urine Glucose (UA) Urine Ketones Urine Blood Urine Nitrite Urine Bilirubin Urine Urobilinogen Ur Leukocyte Esterase Urine WBC (Auto) Urine RBC (Auto) Urine Casts (Auto) U Epithel Cells (Auto) Urine Bacteria (Auto) 09/05/19 09/05/19 06:40 11:56 WBC 6.7 RBC 3.33 L Hgb 10.8 Hct 31.9 L MCV 95.8 MCH 32.6 MCHC 34.0 RDW 12.4 Plt Count 221 MPV 9.3 Absolute Neuts (auto) 4.0 Neutrophils % 59.8 Lymphocytes % 25.6 D Monocytes % 10.6 H Eosinophils % 3.1 Basophils % 0.9 Nucleated RBC % 0 Sodium Potassium Chloride Carbon Dioxide Anion Gap BUN Creatinine Est GFR (CKD-EPI)AfAm Est GFR (CKD-EPI)NonAf POC Glucometer 149 Random Glucose Calcium Phosphorus Magnesium Total Bilirubin AST ALT Alkaline Phosphatase Creatine Kinase Troponin I Total Protein Albumin Vitamin B12 Serum Folate TSH Urine Color Urine Appearance Urine pH Ur Specific [place] Urine Protein Urine Glucose (UA) Urine Ketones Urine Blood Urine Nitrite Urine Bilirubin Urine Urobilinogen Ur Leukocyte Esterase Urine WBC (Auto) Urine RBC (Auto) Urine Casts (Auto) U Epithel Cells (Auto) Urine Bacteria (Auto) Active Medications Home Medications Medication Instructions Recorded Aspirin 81 mg PO DAILY 03/09/14 Enalapril Maleate [Vasotec -] 2.5 mg PO DAILY 03/09/14 Ranolazine [Ranexa -] 500 mg PO BID 03/09/14 Ezetimibe [Zetia] 10 mg PO HS 04/22/14 Famotidine [Pepcid -] 20 mg PO BID 03/02/15 Cholecalciferol (Vitamin D3) 25 mcg PO DAILY 09/04/19 [Vitamin D3] Furosemide [Lasix -] 20 mg PO DAILY 09/04/19 Levothyroxine [Synthroid -] 50 mcg PO DAILY 09/04/19 Metoprolol Succinate [Toprol Xl] 25 mg PO DAILY 09/04/19 Pioglitazone HCl [Actos] 15 mg PO DAILY 09/04/19 Rosuvastatin [Crestor -] 5 mg PO HS 09/04/19 Generic Name Dose Route Start Last Admin Trade Name Freq PRN Reason Stop Dose Admin Acetaminophen 650 mg 09/05/19 11:40 09/05/19 12:16 Tylenol - PO 650 mg Q6H PRN Administration HEADACHE Amlodipine Besylate 5 mg 09/06/19 10:00 Norvasc - PO DAILY [facility] Cholecalciferol 1,000 unit 09/05/19 10:00 09/05/19 09:56 Vitamin D3 - PO 1,000 unit DAILY [facility] Administration Ezetimibe 10 mg 09/05/19 22:00 Zetia - PO HS [facility] Enalapril Maleate 2.5 mg 09/05/19 10:00 09/05/19 13:11 Vasotec - PO 2.5 mg DAILY [facility] Administration Famotidine 20 mg 09/05/19 10:00 09/05/19 09:56 Pepcid - PO 20 mg BID [facility] Administration Heparin Sodium (Porcine) 5,000 unit 09/05/19 10:00 09/05/19 09:56 Heparin - SQ 5,000 unit BID [facility] Administration Ceftriaxone Sodium 1 gm/ 50 mls @ 100 mls/hr 09/05/19 10:00 09/05/19 10:24 Dextrose IVPB 100 mls/hr DAILY [facility] Administration Protocol Insulin Aspart 1 vial 09/05/19 07:00 09/05/19 12:03 Novolog Vial Sliding Scale - SQ Not Given ACHS [facility] Protocol Levothyroxine Sodium 50 mcg 09/05/19 07:00 09/05/19 06:21 Synthroid - PO 50 mcg DAILY@0700 [facility] Administration Miscellaneous 1 each 09/04/19 22:00 09/04/19 22:38 Lidoderm Patch Removal MC 1 each DAILY@2200 [facility] Administration Potassium Chloride 40 meq 09/05/19 10:00 09/05/19 09:55 K-Dur - PO 40 meq DAILY [facility] Administration Ranolazine 500 mg 09/05/19 10:00 09/05/19 10:25 Ranexa - PO 500 mg BID [facility] Administration Rosuvastatin Calcium 5 mg 09/05/19 22:00 Crestor - PO HS [facility] ASSESSMENT/PLAN: 88 yof with PMHx of colitis, ischemic bowel, HTN, DM, hypothyroidism admitted with syncope/fall/weakness/UTI -Syncope/Fall -Lower uncomplicated UTI -Hypokalemia -Weakness -dehydration -Left hand ecchymosis -HTN -HLD -NIDDM -Hypothyroidism -h/o Colitis/Ischemic bowel disease Plan: Patient with no recollection of how she fell, no prodromal symptoms. Suspect weakness/dehydration/UTI contributory. Given no clear prodromal symptoms, telemetry 2D echo. Carotid duplex noted. Start ceftriaxone, follow up urine cultures. Continue enalapril, monitor BP ISS, Hold actos PT eval, OOB, fall precautions Needs ongoing inhouse stay for IV antibiotics, and safe disposition arrangements. Dispo home with services vs SNF based on clinical course. Plan discussed with patient and nursing in detail, all questions answered. Visit type - Emergency Visit Emergency Visit: Yes ED Registration Date: 09/05/19 Care time: The patient presented to the Emergency Department on the above date and was hospitalized for further evaluation of their emergent condition. - New Patient This patient is new to me today: Yes Date on this admission: 09/05/19 - Critical Care Critical Care patient: No - Discharge Referral Referred to [facility] Med [facility] No
[2019-09-05] MEDS ORDERED: POTASSIUM CHLORIDE TABS 20 MEQ TABLET.ER (FP) PO ONE (13:46)
[2019-09-05] MEDS: EZETIMIBE 10 MG TABLET (FP) PO SCH (22:13)
[2019-09-05] MEDS: LIDOCAINE PATCH REMOVAL MC SCH (22:14)
[2019-09-05] MEDS: ROSUVASTATIN CA 5 MG TABLET (FP) PO SCH (22:14)
[2019-09-06] MEDS: INSULIN SLIDING SCALE (NOVOLOG) 1 VIAL SQ SCH ×4 (06:09→22:59)
[2019-09-06] MEDS: LEVOTHYROXINE NA 50 MCG TABLET (FP) PO SCH (06:09)
[2019-09-06 06:22] LABS: BASO % 0.9 % (0-2.0); EOS % 5.1 % (0-4.5); HEMATOCRIT 33.8 % (32.4-45.2); HEMOGLOBIN 11.5 GM/dL (10.7-15.3); LYMPH % 23.8 % (8-40); MCH 32.7 pg (25.7-33.7); MCHC 33.9 g/dl (32.0-36.0); MEAN CELL VOLUME 96.5 fl (80-96); MEAN PLT VOLUME 8.9 fl (7.5-11.1); MONO % 10.9 % (3.8-10.2); NEUT % 59.3 % (42.8-82.8); PLATELET COUNT 212 K/MM3 (134-434); RBC 3.51 M/mm3 (3.60-5.2); RDW 12.2 % (11.6-15.6); WHITE BLOOD COUNT 6.2 K/mm3 (4.0-10.0)
[2019-09-06 07:37] LABS: BLOOD UREA NITROGEN 14.9 mg/dL (7-18); CREATININE 0.8 mg/dL (0.55-1.3); PHOSPHOROUS 3.4 mg/dL (2.5-4.9); POTASSIUM 3.7 mmol/L (3.5-5.1)
[2019-09-06] MEDS ORDERED: DEXTROSE 5%-WATER - 50 ML IVPB ONE (08:53)
[2019-09-06] MEDS ORDERED: cefTRIAXone SODIUM 1 GM VIAL ONE (08:53)
[2019-09-06] MEDS: FAMOTIDINE 20 MG TABLET PO SCH ×2 (09:33→22:32)
[2019-09-06] MEDS: ACETAMINOPHEN 325 MG TABLET (FP) PO PRN ×3 (09:33→22:33)
[2019-09-06] MEDS: CHOLECALCIFEROL (VIT D3) 1,000 UNIT (25 MCG) TABLET PO SCH (09:33)
[2019-09-06] MEDS: POTASSIUM CHLORIDE TABS 20 MEQ TABLET.ER (FP) PO SCH (09:35)
[2019-09-06] MEDS: RANOLAZINE E.R. 500 MG TABLET (FP) PO SCH ×2 (09:35→22:32)
[2019-09-06] MEDS: metoPROLOL SUCCINATE 25 MG TAB.SR.24H (FP) PO SCH (09:35)
[2019-09-06] MEDS: HEPARIN NA (PORCINE) 5,000 UNITS/ML 1ML VIAL SQ SCH ×2 (09:36→22:34)
[2019-09-06] MEDS: CEFTRIAXONE 1 GM in DEXTROSE 5%-WATER - 50 ML IVPB SCH (09:36)
[2019-09-06] MEDS ORDERED: amLODIPine BESYLATE 5 MG TABLET (FP) PO SCH (10:00)
--- NOTE | 2019-09-06 10:56 | PN ---
Teaching Attending Note Name of Resident: Ivana Machuca ATTENDING PHYSICIAN STATEMENT I saw and evaluated the patient. I reviewed the resident's note and discussed the case with the resident. I agree with the resident's findings and plan as documented with exceptions below. SUBJECTIVE: patient seen and examined, no pain or urinary symptoms, ambulating in the hallway. OBJECTIVE: Vital Signs Period Temp Pulse Resp BP Sys/Alexander Pulse Ox Last 24 Hr 98.0 F-98.8 F 61-77 18-20 144-189/64-88 97-100 Intake & Output 09/03/19 09/04/19 09/05/19 09/06/19 23:59 23:59 23:59 23:59 Intake Total 500 140 Balance 500 140 Weight 112 lb 108 lb General: ambulating in hallway, no concerns Chest: CTAB, no rales or wheezing Abdomen:Soft, NT, no CVA or suprapubic tenderness Extremities: no edema Home Medications Medication Instructions Recorded Aspirin 81 mg PO DAILY 03/09/14 Enalapril Maleate [Vasotec -] 2.5 mg PO DAILY 03/09/14 Ranolazine [Ranexa -] 500 mg PO BID 03/09/14 Ezetimibe [Zetia] 10 mg PO HS 04/22/14 Famotidine [Pepcid -] 20 mg PO BID 03/02/15 Cholecalciferol (Vitamin D3) 25 mcg PO DAILY 09/04/19 [Vitamin D3] Furosemide [Lasix -] 20 mg PO DAILY 09/04/19 Levothyroxine [Synthroid -] 50 mcg PO DAILY 09/04/19 Metoprolol Succinate [Toprol Xl] 25 mg PO DAILY 09/04/19 Pioglitazone HCl [Actos] 15 mg PO DAILY 09/04/19 Rosuvastatin [Crestor -] 5 mg PO HS 09/04/19 Active Medications Acetaminophen (Tylenol -) 650 mg PO Q6H PRN PRN Reason: HEADACHE Last Admin: 09/06/19 09:33 Dose: 650 mg Cholecalciferol (Vitamin D3 -) 1,000 unit PO DAILY [facility] Last Admin: 09/06/19 09:33 Dose: 1,000 unit Ezetimibe (Zetia -) 10 mg PO HS [facility] Last Admin: 09/05/19 22:13 Dose: 10 mg Enalapril Maleate (Vasotec -) 2.5 mg PO DAILY [facility] Last Admin: 09/05/19 13:11 Dose: 2.5 mg Famotidine (Pepcid -) 20 mg PO BID [facility] Last Admin: 09/06/19 09:33 Dose: 20 mg Heparin Sodium (Porcine) (Heparin -) 5,000 unit SQ BID [facility] Last Admin: 09/06/19 09:36 Dose: 5,000 unit Ceftriaxone Sodium 1 gm/ (Dextrose) 50 mls @ 100 mls/hr IVPB DAILY [facility]; Protocol Last Admin: 09/06/19 09:36 Dose: 100 mls/hr Insulin Aspart (Novolog Vial Sliding Scale -) 1 vial SQ ACHS [facility]; Protocol Last Admin: 09/06/19 06:09 Dose: Not Given Levothyroxine Sodium (Synthroid -) 50 mcg PO DAILY@0700 [facility] Last Admin: 09/06/19 06:09 Dose: 50 mcg Metoprolol Succinate (Toprol Xl -) 25 mg PO DAILY [facility] Last Admin: 09/06/19 09:35 Dose: 25 mg Miscellaneous (Lidoderm Patch Removal) 1 each MC DAILY@2200 [facility] Last Admin: 09/05/19 22:14 Dose: 1 each Potassium Chloride (K-Dur -) 40 meq PO DAILY [facility] Last Admin: 09/06/19 09:35 Dose: 40 meq Ranolazine (Ranexa -) 500 mg PO BID [facility] Last Admin: 09/06/19 09:35 Dose: 500 mg Rosuvastatin Calcium (Crestor -) 5 mg PO HS [facility] Last Admin: 09/05/19 22:14 Dose: 5 mg Laboratory Results - last 24 hr 09/05/19 09/05/19 09/05/19 11:56 16:37 22:09 WBC RBC Hgb Hct MCV MCH MCHC RDW Plt Count MPV Absolute Neuts (auto) Neutrophils % Lymphocytes % Monocytes % Eosinophils % Basophils % Nucleated RBC % Sodium Potassium Chloride Carbon Dioxide Anion Gap BUN Creatinine Est GFR (CKD-EPI)AfAm Est GFR (CKD-EPI)NonAf POC Glucometer 149 126 115 Random Glucose Calcium Phosphorus Magnesium 09/06/19 09/06/19 09/06/19 05:52 05:53 05:53 WBC 6.2 RBC 3.51 L Hgb 11.5 Hct 33.8 MCV 96.5 H MCH 32.7 MCHC 33.9 RDW 12.2 Plt Count 212 MPV 8.9 Absolute Neuts (auto) 3.7 Neutrophils % 59.3 Lymphocytes % 23.8 Monocytes % 10.9 H Eosinophils % 5.1 H Basophils % 0.9 Nucleated RBC % 0 Sodium 143 Potassium 3.7 Chloride 106 Carbon Dioxide 31 Anion Gap 5 L BUN 14.9 Creatinine 0.8 Est GFR (CKD-EPI)AfAm 77.37 Est GFR (CKD-EPI)NonAf 66.76 POC Glucometer 117 Random Glucose 118 H Calcium 9.0 Phosphorus 3.4 Magnesium 2.0 Microbiology 09/05/19 01:17 Urine - Urine Clean Catch Urine Culture - Preliminary Group D Strep Or Entero Coccus ASSESSMENT AND PLAN: 88 yof with PMHx of colitis, ischemic bowel, HTN, DM, hypothyroidism admitted with syncope/fall/weakness/UTI -Syncope/Fall -Lower uncomplicated UTI -Hypokalemia -Weakness -dehydration -Left hand ecchymosis -HTN -HLD -NIDDM -Hypothyroidism -h/o Colitis/Ischemic bowel disease Plan: Patient with no recollection of how she fell, no prodromal symptoms. Suspect weakness/dehydration/UTI contributory. discussed with Dr. Barraza, patient with known forgetfullness. Telemetry with no events, follow up 2D echo. Carotid duplex noted. Ceftriaxone day 2, urine cx noted, follow up. Resume toprol/Enalapril, monitor BP. Off IVF. ISS, Hold actos PT eval noted dispo dc home with services in 24 hours pending above. Plan discussed with patient and nursing in detail, all questions answered.
--- NOTE | 2019-09-06 11:00 | PN ---
Physical Exam: SUBJECTIVE: Patient seen and examined at bedside. Per nurse, no acute events overnight. Pt getting up out of bed herself, advised to wait for help prior to doing so to avoid future falls. Denies any symptomatic complaints this AM. OBJECTIVE: Vital Signs Temperature 98.5 F 09/06/19 10:00 Pulse Rate 76 09/06/19 10:00 Respiratory Rate 18 09/06/19 10:00 Blood Pressure 149/88 09/06/19 10:00 O2 Sat by Pulse Oximetry (%) 97 09/06/19 00:00 GENERAL: Pleasant, well-appearing female, NAD. AAOx3. HEENT: AT/NC. EOMI. MMM. Facial symmetrical. B/l facial sensation intact. NECK: Normal range of motion, supple without lymphadenopathy, JVD, or masses. LUNGS: Fine crackles in bibasilar bases. Symmetric chest rise. Good air entry. No wheezes noted. HEART: RRR. Normal S1, S2. No murmurs noted. ABDOMEN: Soft, NT/ND. Normoactive BS in all 4Qs. No masses, bruises, deformities noted. MUSCULOSKELETAL: Normal range of motion at all joints. No bony deformities or tenderness. No CVA tenderness. UPPER EXTREMITIES: 2+ pulses, warm, well-perfused. No cyanosis. No clubbing. L hand hematoma with swelling, no tenderness or visible wound seen -- improving since admisson. 5/5 muscle strength in b/l extremities. Sensation intact. LOWER EXTREMITIES: 2+ dorsalis pedis pulses, warm, well-perfused. No calf tenderness. No peripheral edema. 5/5 muscle strength in b/l LE. Sensation intact. NEUROLOGICAL: Cranial nerves II-XII intact. Normal speech. PSYCHIATRIC: Cooperative. Good eye contact. Appropriate mood and affect. CBC, BMP 09/06/19 05:53 09/06/19 05:53 Active Medications Acetaminophen (Tylenol -) 650 mg PO Q6H PRN PRN Reason: HEADACHE Last Admin: 09/06/19 09:33 Dose: 650 mg Cholecalciferol (Vitamin D3 -) 1,000 unit PO DAILY [facility] Last Admin: 09/06/19 09:33 Dose: 1,000 unit Ezetimibe (Zetia -) 10 mg PO HS [facility] Last Admin: 09/05/19 22:13 Dose: 10 mg Enalapril Maleate (Vasotec -) 2.5 mg PO DAILY [facility] Last Admin: 09/05/19 13:11 Dose: 2.5 mg Famotidine (Pepcid -) 20 mg PO BID [facility] Last Admin: 09/06/19 09:33 Dose: 20 mg Heparin Sodium (Porcine) (Heparin -) 5,000 unit SQ BID [facility] Last Admin: 09/06/19 09:36 Dose: 5,000 unit Ceftriaxone Sodium 1 gm/ (Dextrose) 50 mls @ 100 mls/hr IVPB DAILY [facility]; Protocol Last Admin: 09/06/19 09:36 Dose: 100 mls/hr Insulin Aspart (Novolog Vial Sliding Scale -) 1 vial SQ ACHS [facility]; Protocol Last Admin: 09/06/19 06:09 Dose: Not Given Levothyroxine Sodium (Synthroid -) 50 mcg PO DAILY@0700 [facility] Last Admin: 09/06/19 06:09 Dose: 50 mcg Metoprolol Succinate (Toprol Xl -) 25 mg PO DAILY [facility] Last Admin: 09/06/19 09:35 Dose: 25 mg Miscellaneous (Lidoderm Patch Removal) 1 each MC DAILY@2200 [facility] Last Admin: 09/05/19 22:14 Dose: 1 each Potassium Chloride (K-Dur -) 40 meq PO DAILY [facility] Last Admin: 09/06/19 09:35 Dose: 40 meq Ranolazine (Ranexa -) 500 mg PO BID [facility] Last Admin: 09/06/19 09:35 Dose: 500 mg Rosuvastatin Calcium (Crestor -) 5 mg PO HS [facility] Last Admin: 09/05/19 22:14 Dose: 5 mg ASSESSMENT/PLAN: 88F w/ pmhx of colitis, ischemic bowel, HTN, DM, hyperthyroidism, CKD presents in the ED s/p fall. #Syncope; s/p fall. Pt has known forgetfulness. -Head CT and CT C-spine neg; Hip/pelvis and hand xray unremarkable for acute injury -Carotid duplex noted -Tylenol PRN for pain -Echo ordered -Fall precautions/bedrest/PT eval -Tele obs -Trops neg x2 #Uncomplicated UTI; UA+ LE, WBCs -Cont IV Ceftriaxone, day #2 -UCx +Group D strep/Enterococcus #Hypokalemia; Resolved. Replete PRN. -May be medication-induced as pt currently is on Lasix -Hold home Lasix for now; may need to be discharged with KCl supplementation once Lasix is resumed #HTN/HLD; Cont home meds: Toprol XL 25, Enalapril 2.5, Crestor 5, Ranexa 500 BID , Zetia 10. #Hypothyroidism; Cont home med: Synthroid 50 mcg #DM; Hold home oral DM meds. BGM/ISS ACHS #Prophylaxis DVT: Lovenox GI: Cont home Pepcid #FEN -Off IVf -recheck K in AM -Diabetic/Sodium-controlled diet Dispo -tele obs Visit type - Emergency Visit Emergency Visit: Yes ED Registration Date: 09/05/19 Care time: The patient presented to the Emergency Department on the above date and was hospitalized for further evaluation of their emergent condition. - New Patient This patient is new to me today: No - Critical Care Critical Care patient: No ATTENDING PHYSICIAN STATEMENT I saw and evaluated the patient. I reviewed the resident's note and discussed the case with the resident. I agree with the resident's findings and plan as documented. SUBJECTIVE: OBJECTIVE: ASSESSMENT AND PLAN:
[2019-09-06] MEDS: ENALAPRIL MALEATE 2.5 MG TABLET (FP) PO SCH (11:18)
--- NOTE | 2019-09-06 20:18 | EKG ---
Test Reason : Blood Pressure : / mmHG Vent. Rate : 070 BPM Atrial Rate : 070 BPM P-R Int : 168 ms QRS Dur : 086 ms QT Int : 346 ms P-R-T Axes : 061 -18 079 degrees QTc Int : 373 ms NORMAL SINUS RHYTHM LEFT VENTRICULAR HYPERTROPHY WITH REPOLARIZATION ABNORMALITY CANNOT RULE OUT SEPTAL INFARCT (CITED ON OR BEFORE 15-JUN-2019) ABNORMAL ECG WHEN COMPARED WITH ECG OF 15-JUN-2019 15:08, COMPARED TO EKG NO SIGNIFICANT CHANGE IS FOUND Confirmed by ADRIAN HUSAIN MD ([id number]) on 09/06/2019 8:18:14 PM Referred By: Confirmed By:ADRIAN HUSAIN MD
[2019-09-06] MEDS: ROSUVASTATIN CA 5 MG TABLET (FP) PO SCH (22:33)
[2019-09-06] MEDS: EZETIMIBE 10 MG TABLET (FP) PO SCH (22:34)
[2019-09-06] MEDS: LIDOCAINE PATCH REMOVAL MC SCH (22:34)
[2019-09-07] MEDS ORDERED: ACETAMINOPHEN 325 MG TABLET (FP) PO ONE (02:00)
[2019-09-07] MEDS: LEVOTHYROXINE NA 50 MCG TABLET (FP) PO SCH (06:29)
[2019-09-07] MEDS: INSULIN SLIDING SCALE (NOVOLOG) 1 VIAL SQ SCH ×4 (06:30→21:56)
[2019-09-07] MEDS ORDERED: PT OWN MED DRAWER 7, Y5N ONE ×2 (08:36→09:19)
[2019-09-07] MEDS ORDERED: cefTRIAXone SODIUM 1 GM VIAL ONE (08:36)
[2019-09-07] MEDS ORDERED: DEXTROSE 5%-WATER - 50 ML IVPB ONE (08:37)
[2019-09-07] MEDS: POTASSIUM CHLORIDE TABS 20 MEQ TABLET.ER (FP) PO SCH (09:15)
[2019-09-07] MEDS: CEFTRIAXONE 1 GM in DEXTROSE 5%-WATER - 50 ML IVPB SCH (09:15)
[2019-09-07] MEDS: RANOLAZINE E.R. 500 MG TABLET (FP) PO SCH ×2 (09:16→21:56)
[2019-09-07] MEDS: HEPARIN NA (PORCINE) 5,000 UNITS/ML 1ML VIAL SQ SCH ×2 (09:16→21:55)
[2019-09-07] MEDS: metoPROLOL SUCCINATE 25 MG TAB.SR.24H (FP) PO SCH (09:16)
[2019-09-07] MEDS: CHOLECALCIFEROL (VIT D3) 1,000 UNIT (25 MCG) TABLET PO SCH (09:16)
[2019-09-07] MEDS: FAMOTIDINE 20 MG TABLET PO SCH ×2 (09:16→21:55)
[2019-09-07] MEDS: ENALAPRIL MALEATE 2.5 MG TABLET (FP) PO SCH (09:20)
--- NOTE | 2019-09-07 12:46 | ECHO ---
Name: PAESE, SUSSY Exam:Adult Echocardiogram Study Date: 09/07/2019 08:24 AM Age: 88 yrs Reason For Study: syncope Height: 62 in Weight: 108 lb BSA: 1.5 m2 MMode/2D Measurements & Calculations IVSd: 0.84 cm Ao root diam: 2.7 cm LVIDd: 5.3 cm LA dimension: 4.1 cm LVIDs: 3.7 cm ACS: 1.4 cm LVPWd: 0.99 cm IVSs: 1.0 cm LVPWs: 1.1 cm EDV(Teich): 136.4 ml ESV(Teich): 59.8 ml LVOT diam: 2.0 cm Doppler Measurements & Calculations MV E max frederick: 74.0 cm/sec Ao V2 max: 210.8 cm/sec MV A max frederick: 94.3 cm/sec Ao max P.8 mmHg MV E/A: 0.79 Ao V2 mean: 141.5 cm/sec Ao mean P.0 mmHg Ao V2 VTI: 51.3 cm KITTY(I,D): 1.4 cm2 KITTY(V,D): 1.4 cm2 LV V1 max P.8 mmHg MR max frederick: 541.8 cm/sec LV V1 mean P.2 mmHg MR max P.5 mmHg LV V1 max: 97.0 cm/sec LV V1 mean: 69.8 cm/sec LV V1 VTI: 24.4 cm SV(LVOT): 74.2 ml TR max frederick: 200.2 cm/sec TR max P.0 mmHg Med Peak E' Frederick: 4.2 cm/sec Med E/e': 17.8 Lat Peak E' Frederick: 5.0 cm/sec Lat E/e': 14.7 Procedure A complete two-dimensional transthoracic echocardiogram was performed (2D, M-mode, Doppler and color flow Doppler). Left Ventricle The left ventricle is normal in size. Left ventricular systolic function is normal. Ejection Fraction = 55- 60%. Grade I diastolic dysfunction, (abnormal relaxation pattern). Ratio E/E'= 15. No regional wall m otion abnormalities noted. Right Ventricle The right ventricle is normal size. The right ventricular systolic function is normal. Atria The left atrium is mildly dilated. Right atrial size is normal. Mitral Valve There is mild mitral annular calcification. There is mild to moderate mitral regurgitation. Tricuspid Valve The tricuspid valve is normal in structure and function. There is mild tricuspid regurgitation. Right ventricular systolic pressure is normal. Aortic Valve There is mild to moderate aortic valve thickening. There is moderate aortic sclerosis.;. The calculat ed aortic valve area using the continuity equation is 1.4 cm2. Aortic max pressure gradient= 10 mmHg. DI (dimen sionless index) is 0.44. No aortic regurgitation is present. Pulmonic Valve The pulmonic valve is not well visualized. Great Vessels The aortic root is normal size. Pericardium/Pleura Small pericardial effusion (<1cm). Interpretation Summary The left ventricle is normal in size. Left ventricular systolic function is normal. No regional wall motion abnormalities noted. Ejection Fraction = 55-60%. Grade I diastolic dysfunction, (abnormal relaxation pattern). Ratio E/E'= 15 The right ventricular systolic function is normal. The left atrium is mildly dilated. Right atrial size is normal. There is mild mitral annular calcification. There is mild to moderate mitral regurgitation. There is mild tricuspid regurgitation. Right ventricular systolic pressure is normal. There is mild to moderate aortic valve thickening. There is moderate aortic sclerosis. The calculated aortic valve area using the continuity equation is 1.4 cm2. Aortic max pressure gradient= 10 mmHg DI (dimensionless index) is 0.44 No aortic regurgitation is present. Small pericardial effusion (<1cm) Roland Rhodes MD 09/07/2019 12:46 PM
--- NOTE | 2019-09-07 15:19 | PN ---
Teaching Attending Note Name of Resident: Joe Butler ATTENDING PHYSICIAN STATEMENT I saw and evaluated the patient. I reviewed the resident's note and discussed the case with the resident. I agree with the resident's findings and plan as documented with exceptions below. SUBJECTIVE: Patient seen and examined. no complaints or urinary symptoms. OBJECTIVE: Vital Signs Period Temp Pulse Resp BP Sys/Alexander Pulse Ox Last 24 Hr 97.9 F-98.4 F 53-62 18-20 153-185/61-74 98-100 Intake & Output 09/04/19 09/05/19 09/06/19 09/07/19 23:59 23:59 23:59 23:59 Intake Total 500 690 210 Balance 500 690 210 Weight 112 lb 108 lb 108 lb General: sitting in bed, no acute distress Neck: soft, supple Chest: CTAB, no rales or wheezing Abdomen:soft, Nt Extremities: no edema Home Medications Medication Instructions Recorded Aspirin 81 mg PO DAILY 03/09/14 Enalapril Maleate [Vasotec -] 2.5 mg PO DAILY 03/09/14 Ranolazine [Ranexa -] 500 mg PO BID 03/09/14 Ezetimibe [Zetia] 10 mg PO HS 04/22/14 Famotidine [Pepcid -] 20 mg PO BID 03/02/15 Cholecalciferol (Vitamin D3) 25 mcg PO DAILY 09/04/19 [Vitamin D3] Furosemide [Lasix -] 20 mg PO DAILY 09/04/19 Levothyroxine [Synthroid -] 50 mcg PO DAILY 09/04/19 Metoprolol Succinate [Toprol Xl] 25 mg PO DAILY 09/04/19 Pioglitazone HCl [Actos] 15 mg PO DAILY 09/04/19 Rosuvastatin [Crestor -] 5 mg PO HS 09/04/19 Amoxicillin - [Amoxicillin 500mg 500 mg PO TID 4 Days #12 capsule 09/07/19 Capsule -] Laboratory Results - last 24 hr 09/06/19 09/06/19 09/07/19 16:45 22:03 05:57 POC Glucometer 117 138 107 09/07/19 11:38 POC Glucometer 118 Microbiology 09/05/19 01:17 Urine - Urine Clean Catch Urine Culture - Final Enterococcus Faecalis ASSESSMENT AND PLAN: 88 yof with PMHx of colitis, ischemic bowel, HTN, DM, hypothyroidism admitted with syncope/fall/weakness/UTI -Syncope/Fall -Lower uncomplicated UTI -Hypokalemia -Weakness -dehydration -Left hand ecchymosis -HTN -HLD -NIDDM -Hypothyroidism -h/o Colitis/Ischemic bowel disease Plan: doing well, no events on telemetry 2D echo noted Urine cx noted Amoxicillin for additional 4 days Dc home with services today Discussed with patient and social work.
[2019-09-07] MEDS ORDERED: amLODIPine BESYLATE 2.5 MG TABLET (FP) PO STA (17:53)
[2019-09-07] MEDS ORDERED: amLODIPine BESYLATE 2.5 MG TABLET (FP) PO ONE (18:00)
[2019-09-07] MEDS: ACETAMINOPHEN 325 MG TABLET (FP) PO PRN (18:21)
--- NOTE | 2019-09-07 19:42 | DS ---
Physical Exam: SUBJECTIVE: Patient seen and examined in the afternoon. No acute events. No complaints of chest pain, shortness of breath, abdominal pain, no nausea, vomiting, diarrhea. OBJECTIVE: Vital Signs Period Temp Pulse Resp BP Sys/Alexander Pulse Ox Last 24 Hr 97.7 F-98.4 F 53-106 18-20 153-189/61-85 100-100 PHYSICAL EXAM GENERAL: The patient is awake, alert, and fully oriented, in no acute distress. LUNGS: Breath sounds equal, clear to auscultation bilaterally, no wheezes, no crackles, no accessory muscle use. HEART: Regular rate and rhythm, S1, S2 without murmur, rub or gallop. ABDOMEN: Soft, nontender, nondistended, normoactive bowel sounds, no guarding, no rebound, no hepatosplenomegaly, no masses. NEUROLOGICAL: Cranial nerves II through XII grossly intact. LABS Laboratory Results - last 24 hr 09/06/19 09/07/19 09/07/19 22:03 05:57 11:38 POC Glucometer 138 107 118 Microbiology 09/05/19 01:17 Urine - Urine Clean Catch Urine Culture - Final Enterococcus Faecalis HOSPITAL COURSE: Date of Admission:09/05/19 Date of Discharge: 09/07/19 88F with PMH of ischemic bowel, HTN, DM, hypothyroidism, CKD presented s/p fall. Head CT and CT spine negative. Echo did not show structural abnormalities. Patient's urine culture resulted with enterococcus faecalis which was treated with IV ceftriaxone, discharged on Amoxicillin 500 TID for 4 days. Patient was noted to be hypokalemic on admission was repleted appropriately. Patient had no events on telemetry monitoring while in hospital. Significant imaging: CT Cervical Spine: No fracture is identified. CT Head: No CT evidence of acute intracranial pathology. Mild to moderate periventricular chronic microvascular ischemic changes are noted. There has been no definite interval change in comparison to a prior CT exam of 08/13/2015. Echo: The left ventricle is normal in size. Left ventricular systolic function is normal. No regional wall motion abnormalities noted. Ejection Fraction = 55-60%. Grade I diastolic dysfunction, (abnormal relaxation pattern). Ratio E/E'= 15 The right ventricular systolic function is normal. The left atrium is mildly dilated. Right atrial size is normal. There is mild mitral annular calcification. There is mild to moderate mitral regurgitation. There is mild tricuspid regurgitation. Right ventricular systolic pressure is normal. There is mild to moderate aortic valve thickening. There is moderate aortic sclerosis. The calculated aortic valve area using the continuity equation is 1.4 cm2. Aortic max pressure gradient= 10 mmHg DI (dimensionless index) is 0.44 No aortic regurgitation is present. Small pericardial effusion (<1cm) Minutes to complete discharge: 30 Discharge Summary Problems reviewed: Yes Reason For Visit: SYNCOPE AND COLLAPSE/UNWITNESSED FALL/HYPOKALEMIA Current Active Problems Head injury (Acute) Hypokalemia (Acute) Neck pain (Acute) Unwitnessed fall (Acute) Condition: Stable - Instructions Diet, Activity, Other Instructions: You were admitted to the hospital because you had a fall. We did a scan of your head and it was normal, we did a scan of your heart and it was functioning normally. While you were here, you were treated for a UTI (urinary tract infection). You will complete treatment with antibiotics after discharge. Please take: Amoxicillin 500 mg, by mouth three times a day for he next 4 days starting tomorrow 09/08/2019. You will take your last dose on the night of 09/11/19. Please continue all your other medications as prescribed. Please follow up with Dr. Frausto within 1 week. Return to the emergency department if you have any chest pain, shortness of breath, abdominal pain, nausea, or vomiting. Referrals: Stuart Davis MD [Primary Care Provider] - 1 Week Tj Barraza MD [Staff Physician] - 1 Week Disposition: VNS/HOME HEALTH CARE - Home Medications Comprehensive Discharge Medication List: Ambulatory Orders Aspirin 81 mg PO DAILY 03/09/14 Enalapril Maleate [Vasotec -] 2.5 mg PO DAILY 03/09/14 Ranolazine [Ranexa -] 500 mg PO BID 03/09/14 Ezetimibe [Zetia] 10 mg PO HS 04/22/14 Famotidine [Pepcid -] 20 mg PO BID 03/02/15 Cholecalciferol (Vitamin D3) [Vitamin D3] 25 mcg PO DAILY 09/04/19 Furosemide [Lasix -] 20 mg PO DAILY 09/04/19 Levothyroxine [Synthroid -] 50 mcg PO DAILY 09/04/19 Metoprolol Succinate [Toprol Xl] 25 mg PO DAILY 09/04/19 Pioglitazone HCl [Actos] 15 mg PO DAILY 09/04/19 Rosuvastatin [Crestor -] 5 mg PO HS 09/04/19 Amoxicillin - [Amoxicillin 500mg Capsule -] 500 mg PO TID 4 Days #12 capsule This patient is new to me today: Yes Date on this admission: 09/07/19 Emergency Visit: Yes ED Registration Date: 09/05/19 Care time: The patient presented to the Emergency Department on the above date and was hospitalized for further evaluation of their emergent condition. Critical Care patient: No - Discharge Referral Referred to [facility] Med P.C.: No ATTENDING PHYSICIAN STATEMENT I saw and evaluated the patient. I reviewed the resident's note and discussed the case with the resident. I agree with the resident's findings and plan as documented. SUBJECTIVE: OBJECTIVE: ASSESSMENT AND PLAN:
[2019-09-07] MEDS: ROSUVASTATIN CA 5 MG TABLET (FP) PO SCH (21:55)
[2019-09-07] MEDS: EZETIMIBE 10 MG TABLET (FP) PO SCH (21:55)
[2019-09-07] MEDS: LIDOCAINE PATCH REMOVAL MC SCH (22:45)
[2019-09-08] MEDS: INSULIN SLIDING SCALE (NOVOLOG) 1 VIAL SQ SCH ×2 (06:47→11:31)
[2019-09-08] MEDS: LEVOTHYROXINE NA 50 MCG TABLET (FP) PO SCH (07:00)
[2019-09-08] MEDS ORDERED: DEXTROSE 5%-WATER - 50 ML IVPB ONE (08:18)
[2019-09-08] MEDS ORDERED: cefTRIAXone SODIUM 1 GM VIAL ONE (08:18)
[2019-09-08 09:01] VITALS: TEMP 98
[2019-09-08] MEDS: CEFTRIAXONE 1 GM in DEXTROSE 5%-WATER - 50 ML IVPB SCH (09:49)
[2019-09-08] MEDS: HEPARIN NA (PORCINE) 5,000 UNITS/ML 1ML VIAL SQ SCH (09:49)
[2019-09-08] MEDS: metoPROLOL SUCCINATE 25 MG TAB.SR.24H (FP) PO SCH (09:50)
[2019-09-08] MEDS: FAMOTIDINE 20 MG TABLET PO SCH (09:50)
[2019-09-08] MEDS: RANOLAZINE E.R. 500 MG TABLET (FP) PO SCH (09:50)
[2019-09-08] MEDS: CHOLECALCIFEROL (VIT D3) 1,000 UNIT (25 MCG) TABLET PO SCH (09:50)
[2019-09-08] MEDS: POTASSIUM CHLORIDE TABS 20 MEQ TABLET.ER (FP) PO SCH (09:52)
[2019-09-08] MEDS ORDERED: amLODIPine BESYLATE 5 MG TABLET (FP) PO ONE (11:09)
[2019-09-08 14:19] VITALS: BP 163/75; PULSE 58
--- NOTE | 2019-09-08 14:25 | PN ---
Physical Exam: SUBJECTIVE: Patient seen and examined in the morning. Was discharged yesterday but did not leave until today morning. No complaints of chest pain, shortness of breath, dizziness, headache, fever, chills. OBJECTIVE: Vital Signs Period Temp Pulse Resp BP Sys/Alexander Pulse Ox Last 24 Hr 97.7 F-98.8 F 58-106 18-20 142-189/65-85 96-96 GENERAL: The patient is awake, alert, and fully oriented, in no acute distress. LUNGS: Breath sounds equal, clear to auscultation bilaterally, no wheezes, no crackles, no accessory muscle use. HEART: Regular rate and rhythm, S1, S2 without murmur, rub or gallop. ABDOMEN: Soft, nontender, nondistended, normoactive bowel sounds, no guarding, no rebound, no hepatosplenomegaly, no masses. NEUROLOGICAL: Cranial nerves II through XII grossly intact. Laboratory Results - last 24 hr 09/07/19 09/08/19 09/08/19 21:53 06:30 11:26 POC Glucometer 159 117 109 Active Medications Generic Name Dose Route Start Last Admin Trade Name Freq PRN Reason Stop Dose Admin Acetaminophen 650 mg 09/05/19 11:40 09/07/19 18:21 Tylenol - PO 650 mg Q6H PRN Administration HEADACHE Cholecalciferol 1,000 unit 09/05/19 10:00 09/08/19 09:50 Vitamin D3 - PO 1,000 unit DAILY LAINEY Administration Ezetimibe 10 mg 09/05/19 22:00 09/07/19 21:55 Zetia - PO 10 mg HS LAINEY Administration Enalapril Maleate 2.5 mg 09/05/19 10:00 09/07/19 09:20 Vasotec - PO 2.5 mg DAILY LAINEY Administration Famotidine 20 mg 09/05/19 10:00 09/08/19 09:50 Pepcid - PO 20 mg BID LAINEY Administration Heparin Sodium (Porcine) 5,000 unit 09/05/19 10:00 09/08/19 09:49 Heparin - SQ 5,000 unit BID LAINEY Administration Ceftriaxone Sodium 1 gm/ 50 mls @ 100 mls/hr 09/05/19 10:00 09/08/19 09:49 Dextrose IVPB 100 mls/hr DAILY LAINEY Administration Protocol Insulin Aspart 1 vial 09/05/19 07:00 09/08/19 11:31 Novolog Vial Sliding Scale - SQ Not Given ACHS [facility] Protocol Levothyroxine Sodium 50 mcg 09/05/19 07:00 09/08/19 07:00 Synthroid - PO 50 mcg DAILY@0700 LAINEY Administration Metoprolol Succinate 25 mg 09/06/19 10:00 09/08/19 09:50 Toprol Xl - PO 25 mg DAILY LAINEY Administration Miscellaneous 1 each 09/04/19 22:00 09/07/19 22:45 Lidoderm Patch Removal MC Not Given DAILY@2200 LAINEY Potassium Chloride 40 meq 09/05/19 10:00 09/08/19 09:52 K-Dur - PO 40 meq DAILY LAINEY Administration Ranolazine 500 mg 09/05/19 10:00 09/08/19 09:50 Ranexa - PO 500 mg BID LAINEY Administration Rosuvastatin Calcium 5 mg 09/05/19 22:00 09/07/19 21:55 Crestor - PO 5 mg HS LAINEY Administration ASSESSMENT/PLAN: 88F with PMH of ischemic bowel, HTN, DM, hypothyroidism, CKD presented s/p fall. Head CT and CT spine negative. Echo did not show structural abnormalities. Patient was discharge yesterday. Was prescribed an additional hypertensive medication today: Amlodipine 5 mg daily. Please see discharge summary. Visit type - Emergency Visit Emergency Visit: Yes ED Registration Date: 09/05/19 Care time: The patient presented to the Emergency Department on the above date and was hospitalized for further evaluation of their emergent condition. - New Patient This patient is new to me today: No - Critical Care Critical Care patient: No ATTENDING PHYSICIAN STATEMENT I saw and evaluated the patient. I reviewed the resident's note and discussed the case with the resident. I agree with the resident's findings and plan as documented. SUBJECTIVE: OBJECTIVE: ASSESSMENT AND PLAN:
[2019-09-08] MEDS: ENALAPRIL MALEATE 2.5 MG TABLET (FP) PO SCH (14:26)
--- NOTE | 2019-09-08 15:53 | PN ---
Teaching Attending Note Name of Resident: Joe Butler ATTENDING PHYSICIAN STATEMENT I saw and evaluated the patient. I reviewed the resident's note and discussed the case with the resident. I agree with the resident's findings and plan as documented. SUBJECTIVE: Feels well. Denies dysuria/hematuria. No fever/chills. OBJECTIVE: Afebrile, hemodynamically Stable. Last Vital Signs Temp Pulse Resp BP Pulse Ox 98.0 F 58 L 18 163/75 96 09/08/19 14:00 09/08/19 14:00 09/08/19 14:00 09/08/19 14:00 09/08/19 08:58 HEENT - Atraumatic. Heart - S1, S2, RRR Lungs - clear to auscultation Abdomen -Soft, non-tender. Bowel Sounds normal. Extremities - no edema, no calf tenderness. Laboratory Results - last 24 hr 09/07/19 09/08/19 09/08/19 21:53 06:30 11:26 POC Glucometer 159 117 109 Discharge Medications Medication Instructions Recorded Aspirin 81 mg PO DAILY 03/09/14 Enalapril Maleate [Vasotec -] 2.5 mg PO DAILY 03/09/14 Ranolazine [Ranexa -] 500 mg PO BID 03/09/14 Ezetimibe [Zetia] 10 mg PO HS 04/22/14 Famotidine [Pepcid -] 20 mg PO BID 03/02/15 Cholecalciferol (Vitamin D3) 25 mcg PO DAILY 09/04/19 [Vitamin D3] Furosemide [Lasix -] 20 mg PO DAILY 09/04/19 Levothyroxine [Synthroid -] 50 mcg PO DAILY 09/04/19 Metoprolol Succinate [Toprol Xl] 25 mg PO DAILY 09/04/19 Pioglitazone HCl [Actos] 15 mg PO DAILY 09/04/19 Rosuvastatin [Crestor -] 5 mg PO HS 09/04/19 Amoxicillin - [Amoxicillin 500mg 500 mg PO TID 4 Days #12 capsule 09/07/19 Capsule -] Amlodipine Besylate 5 mg PO DAILY #30 tablet 09/08/19 ASSESSMENT AND PLAN: 88 year old female with history of Colitis, ischemic bowel, HTN, DM 2, Hypothyroidism, admitted with syncope/fall/weakness/UTI 1. Syncope secondary to UTI Urine Cx - Enterococcus. On amoxicillin Afebrile, hemodynamically Stable. 2. Dehydration sec to UTI - resolved 3. HTN - Continue Enalapril, Metoprolol, and Norvasc 4. HLD - continue Crestor, Zetria 5. DM 2 - Continue Actos 6. Hypothyroidism - continue Synthroid. Medically optimized for discharge
== END 2019-09-08 14:26 | disposition home health service (06) | DRG 312 ==
LOC: JER 17:33 → JERBED 18:53 → J4W 09-05 01:40 → OBSVTOIN 09-05 08:27
PROVIDERS: ADMIT Internal Medicine
DX: R55 Syncope and collapse (principal); N39.0 Urinary tract infection, site not specified; S60.222A Contusion of left hand, initial encounter; E11.22 Type 2 diabetes mellitus with diabetic chronic kidney disease; E03.9 Hypothyroidism, unspecified; E87.6 Hypokalemia; D50.9 Iron deficiency anemia, unspecified; K21.9 Gastro-esophageal reflux disease without esophagitis; K57.90 Diverticulosis of intestine, part unspecified, without perforation or abscess without bleeding; E78.00 Pure hypercholesterolemia, unspecified; K52.9 Noninfective gastroenteritis and colitis, unspecified; E86.0 Dehydration; R53.1 Weakness; I12.9 Hypertensive chronic kidney disease with stage 1 through stage 4 chronic kidney disease, or unspecified chronic kidney disease; N18.9 Chronic kidney disease, unspecified; B95.2 Enterococcus as the cause of diseases classified elsewhere; W18.30XA Fall on same level, unspecified, initial encounter; Y92.098 Other place in other non-institutional residence as the place of occurrence of the external cause
CPT/HCPCS: 36415; 70450-TC; 71046-TC-FY; 72125-TC; 72170-TC-FY; 73130-TC-LT-FY; 80048; 80053; 81003; 82550; 82607; 82746; 82962; 83735; 84100; 84132; 84443; 84484; 85025; 87086; 87186; 93005; 93010; 93306-TC; 97116-GP; 97161-GP; 99283-25; G0378; J1644

== ENCOUNTER 2020-05-10 15:09 | Emergency (ER) | payer OTHER ==
--- NOTE | 2020-05-10 15:28 | PDOC ---
Rapid Medical Evaluation Chief Complaint: Pain Time Seen by Provider: 05/10/20 15:21 Medical Evaluation: Allergies Allergy/AdvReac Type Severity Reaction Status Date / Time No Known Drug Allergies Allergy Verified 05/10/20 15:24 Vital Signs Temp Pulse Resp BP Pulse Ox 98.4 F 69 18 152/55 L 100 05/10/20 15:19 05/10/20 15:19 05/10/20 15:19 05/10/20 15:19 05/10/20 15:19 05/10/20 15:26 CC: left rib pain worse with deep breathing or movement. Denies injury, rash, fver, or cough Exam: reproducible tenderness to 9-10 rib lat of lmcl. no rash, no crepitus, lcta Plan: rib xray Discharge Disposition - Diagnosis Rib pain - Discharge Dispostion Disposition: HOME Condition at time of disposition: Good - Referrals Referrals: Geovani Rabago MD [Primary Care Provider] - - Patient Instructions Printed Discharge Instructions: DI for Costochondritis, DI for Prescription Opioid Use Additional Instructions: You must return to the Emergency Department with any new complaints, if your symptoms persist and do not improve or if you develop any other new or worsening concerns. As discussed, please call to follow up with your Primary Care physician in 1-2 days to discuss what happened to you in the emergency room, and make sure you are being looked after and taken care of. Your emergency room visit is not complete without this follow up appointment. Please read the attached handouts for further information about your ER visit and what you should do moving forward. Thank you for coming to the [facility]. We hope you feel better soon! - Post Discharge Activity
[2020-05-10 15:30] VITALS: TEMP 98.4; BMI 20.1
--- NOTE | 2020-05-10 16:08 | PDOC ---
History of Present Illness - General Chief Complaint: Pain Stated Complaint: LF SIDED RIB CAGE INJURY Time Seen by Provider: 05/10/20 15:21 - History of Present Illness Initial Comments: 05/10/20 16:07 89yo F w/ PMH leaky heart valve, smoking (tobacco use), DM, and former rib fractures p/w L lower ribs pain. This is day 4 of a constant ache that becomes a sharp pain when she breathes deeply or twists her torso. She has not taken any medicine for the pain. It does not radiate to the back, belly, or chest/neck/shoulder. At its worst it is 7/10. Denies trauma, SOB, CP, back pain, belly pain, carrying heavy things, recent il lness, or recent similar events. PMH leaky heart valve, DM, HTN PSH breast removal and reconstruction, appendectomy No personal or family history of Cancer. ROS CONSTITUTIONAL: Absent: fever, chills, diaphoresis, generalized weakness, malaise, loss of appetite HEENT: ++ rhinorrhea, Absent:nasal congestion, throat pain, throat swelling, difficulty swallowing, mouth swelling, ear pain, eye pain, visual Changes CARDIOVASCULAR: Absent: chest pain, syncope, palpitations, irregular heart rate, lightheadedness, peripheral edema RESPIRATORY: Absent: cough, shortness of breath, dyspnea with exertion, orthopnea, wheezing, stridor, hemoptysis GASTROINTESTINAL: Absent: abdominal pain, abdominal distension, nausea, vomiting, diarrhea, constipation, melena, hematochezia GENITOURINARY: Absent: dysuria, frequency, urgency, hesitancy, hematuria, flank pain, genital pain MUSCULOSKELETAL: Absent: arthralgia, joint swelling SKIN: Absent: rash, itching, pallor HEMATOLOGIC/IMMUNOLOGIC: Absent: easy bleeding, easy bruising, lymphadenopathy, frequent infections ENDOCRINE: Absent: unexplained weight gain, unexplained weight loss, heat intolerance, cold intolerance NEUROLOGIC: Absent: headache, focal weakness or paresthesias, dizziness, unsteady gait, seizure, mental status changes, bladder or bowel incontinence PSYCHIATRIC: Absent: anxiety, depression, suicidal or homicidal ideation, hallucinations. PE GENERAL: Well developed, well nourished. Awake and alert. No acute distress. HEENT: Normocephalic, atraumatic. PERRLA, EOMI. No conjunctival pallor. Sclera are non- icteric. Moist mucous membranes. Oropharynx is clear. NECK: Supple. Full ROM. No JVD. No thyromegaly. No lymphadenopathy. CARDIOVASCULAR: Regular rate and rhythm. No murmurs, rubs, or gallops. Distal pulses are 2+ and symmetric. PULMONARY: No evidence of respiratory distress. Lungs clear to auscultation bilaterally. No wheezing, rales or rhonchi. ABDOMINAL: Soft. Non-tender. Non-distended. No rebound or guarding. No organomegaly. Normoactive bowel sounds. Left axillary line at lower L ribs are tender to pal pation, especially intercostal region. MUSCULOSKELETAL Normal range of motion at all joints. No bony deformities or tenderness. No CVA tenderness. EXTREMITIES: No cyanosis. No clubbing. No edema. No calf tenderness. SKIN: Warm and dry. Normal capillary refill. No rashes. No jaundice. NEUROLOGICAL: Alert, awake, appropriate. Cranial nerves 2-12 intact. No deficits to light touch in face, upper extremities and lower extremities. No motor deficits in the in face, upper extremities and lower extremities. Normoreflexic in the upper and lower extremities. Normal speech. Toes are down-going bilaterally. Gait is normal without ataxia. PSYCHIATRIC: Cooperative. Good eye contact. Appropriate mood and affect. Assessment: 89yo F w/ 4days lower left rib pain brought on by deep breathing and touching 10th and 11th intercostal spaces along the mid-axillary line is stable and resting comfortably. THis is consistent with costochondritis. Plan: EKG, Troponin, and UA to help rule out more serious causes, such as ACS and nephrolithiasis. MDM: Troponin negative, EKG sinus bradycardia, UA negative for infection signs. Cleared for discharge 05/10/20 18:48 Past History - Medical History Allergies/Adverse Reactions: Allergies Allergy/AdvReac Type Severity Reaction Status Date / Time No Known Drug Allergies Allergy Verified 05/10/20 15:24 Home Medications: Ambulatory Orders Aspirin 81 mg PO DAILY 03/09/14 Enalapril Maleate [Vasotec -] 2.5 mg PO DAILY 03/09/14 Ranolazine [Ranexa -] 500 mg PO BID 03/09/14 Ezetimibe [Zetia] 10 mg PO HS 04/22/14 Famotidine [Pepcid -] 20 mg PO BID 03/02/15 Cholecalciferol (Vitamin D3) [Vitamin D3] 25 mcg PO DAILY 09/04/19 Furosemide [Lasix -] 20 mg PO DAILY 09/04/19 Levothyroxine [Synthroid -] 50 mcg PO DAILY 09/04/19 Metoprolol Succinate [Toprol Xl] 25 mg PO DAILY 09/04/19 Pioglitazone HCl [Actos] 15 mg PO DAILY 09/04/19 Rosuvastatin [Crestor -] 5 mg PO HS 09/04/19 Amoxicillin - [Amoxicillin 500mg Capsule -] 500 mg PO TID 4 Days #12 capsule 09/07/19 Amlodipine Besylate 5 mg PO DAILY #30 tablet 09/08/19 Anemia: No (IRON DEF) Asthma: No Cancer: No Cardiac Disorders: Yes (LEAKY VALVE) CVA: No COPD: No CHF: No Dementia: No Diabetes: Yes (NIDDM) GI Disorders: Yes (GERD/DIVERTICULOSIS) Disorders: No HTN: Yes Hypercholesterolemia: Yes Liver Disease: No Seizures: No Thyroid Disease: Yes - Surgical History Abdominal Surgery: Yes (ADHESIONS IN THE COLON) Appendectomy: Yes Cardiac Surgery: No Cholecystectomy: No Lung Surgery: No Neurologic Surgery: No Orthopedic Surgery: No - Immunization History Immunization Up to Date: Yes - Psycho-Social/Smoking History Smoking Status: No Smoking History: Never smoked Have you smoked in the past 12 months: No Number of Cigarettes Smoked Daily: 0 If you are a former smoker, when did you quit?: 30YRS AGO *Physical Exam - Vital Signs Last Vital Signs Temp Pulse Resp BP Pulse Ox 98.4 F 69 18 152/55 L 100 05/10/20 15:19 05/10/20 15:19 05/10/20 15:19 05/10/20 15:19 05/10/20 15:19 ED Treatment Course - LABORATORY CBC & Chemistry Diagram: 05/10/20 17:00 Discharge - Discharge Information Problems reviewed: Yes Clinical Impression/Diagnosis: Rib pain Condition: Good Disposition: HOME - Admission No - Follow up/Referral Referrals: Geovani Rabago MD [Primary Care Provider] - - Patient Discharge Instructions Patient Printed Discharge Instructions: DI for Costochondritis, DI for Prescription Opioid Use Additional Instructions: You must return to the Emergency Department with any new complaints, if your symptoms persist and do not improve or if you develop any other new or worsening concerns. As discussed, please call to follow up with your Primary Care physician in 1-2 days to discuss what happened to you in the emergency room, and make sure you are being looked after and taken care of. Your emergency room visit is not complete without this follow up appointment. Please read the attached handouts for further information about your ER visit and what you should do moving forward. Thank you for coming to the [facility]. We hope you feel better soon! - Post Discharge Activity
[2020-05-10] MEDS ORDERED: LIDOCAINE 5% TOPICAL PATCH TP ONE (17:00)
[2020-05-10] MEDS ORDERED: LIDOCAINE 5% TOPICAL PATCH ONE (17:02)
[2020-05-10 17:43] LABS: ANION GAP 4 MMOL/L (8-16); BLOOD UREA NITROGEN 22.9 mg/dL (7-18); CALCIUM 9.2 mg/dL (8.5-10.1); CHLORIDE 107 mmol/L (98-107); CO2 28 mmol/L (21-32); CREATININE 1.2 mg/dL (0.55-1.3); GLUCOSE,RANDOM 112 mg/dL (74-106); POTASSIUM 4.8 mmol/L (3.5-5.1); SODIUM 140 mmol/L (136-145)
[2020-05-10] MEDS ORDERED: ACETAMINOPHEN 325 MG TABLET (FP) PO ONE (17:48)
--- NOTE | 2020-05-10 17:58 | PDOC ---
Documentation entered by Macy Luna SCRIBE, acting as scribe for Joyce Curiel MD. Joyce Curiel MD: This documentation has been prepared by the dawnibeGeovani son,JERALD Cavazos, under my direction and personally reviewed by me in its entirety. I confirm that the documentation accurately reflects all work, treatment, procedures, and medical decision making performed by me. Attending Attestation - Resident Resident Name: Kevin Anand - ED Attending Attestation I have performed the following: I have examined & evaluated the patient, The case was reviewed & discussed with the resident, I agree w/resident's findings & plan, Exceptions are as noted - HPI HPI: 05/10/20 16:51 The patient is a 89 year old female who presents to the emergency department with left lower rib pain that worsens with touch or deep breathing. Denies any injuries or trauma. Allergies: NKA Social history: Former smoker, no reported use of alcohol or recreational drugs. PCP: Dr. Rabago - Physicial Exam PE: 05/10/20 17:36 wnwd 89 yo female p/w very focal left sided ribcage pain but denies any recent trauma head ncat neck supple lungs cta b/l cvs [id number] torso left sided ribcage pain to palpation , no vesicles seen, no erythema ecchymosis abdomen nontender skin warm and dry neuro axox3 05/10/20 17:55 - Medical Decision Making 05/10/20 18:21 UA negative Troponin is negative Chest x-ray does NOT infiltrates or effusions or pneumothorax, old well-healed rib fractures. 05/10/20 18:37 pt was picked up by her grand daughter and taken home 05/10/20 18:39 Discharge - Discharge Information Problems reviewed: Yes Clinical Impression/Diagnosis: Rib pain Condition: Good Disposition: HOME - Follow up/Referral Referrals: Geovani Rabago MD [Primary Care Provider] - - Patient Discharge Instructions Patient Printed Discharge Instructions: DI for Costochondritis, DI for Prescription Opioid Use Additional Instructions: You must return to the Emergency Department with any new complaints, if your symptoms persist and do not improve or if you develop any other new or worsening concerns. As discussed, please call to follow up with your Primary Care physician in 1-2 days to discuss what happened to you in the emergency room, and make sure you are being looked after and taken care of. Your emergency room visit is not complete without this follow up appointment. Please read the attached handouts for further information about your ER visit and what you should do moving forward. Thank you for coming to the [place] [facility]. We hope you feel better soon! - Post Discharge Activity
[2020-05-10] MEDS ORDERED: ACETAMINOPHEN 500 MG TABLET (FP) ONE ×2 (18:06→18:10)
[2020-05-10 18:12] LABS: EPI CELLS 4 /uL (0-25.1); HYALINE CASTS 0 /uL (0-3.1); PH,URINE 5.5 (5.0-8.0); URINE APPEARANCE CLEAR; URINE BACTERIA 7 /uL (0-1359); URINE BILIRUBIN NEGATIVE (NEGATIVE); URINE COLOR YELLOW; URINE GLUCOSE (UA) NEGATIVE (NEGATIVE); URINE KETONE NEGATIVE (NEGATIVE); URINE LEUK ESTERASE TRACE (NEGATIVE); URINE NITRITE NEGATIVE (NEGATIVE); URINE PROTEIN NEGATIVE (NEGATIVE); URINE RBC 6 /uL (0-23.9); URINE UROBILINOGEN 0.2 mg/dL (0.2-1.0); URINE WBC 8 /uL (0-25.8)
[2020-05-10 19:00] VITALS: BP 147/69; PULSE 65
[2020-05-10] MEDS ORDERED: LIDOCAINE PATCH REMOVAL MC SCH (22:00)
--- NOTE | 2020-05-11 12:55 | EKG ---
Test Reason : Blood Pressure : / mmHG Vent. Rate : 051 BPM Atrial Rate : 051 BPM P-R Int : 180 ms QRS Dur : 086 ms QT Int : 452 ms P-R-T Axes : 042 -12 041 degrees QTc Int : 416 ms SINUS BRADYCARDIA SEPTAL INFARCT (CITED ON OR BEFORE 15-JUN-2019) ABNORMAL ECG WHEN COMPARED WITH ECG OF 04-SEP-2019 17:52, ST NO LONGER DEPRESSED IN LATERAL LEADS NONSPECIFIC T WAVE ABNORMALITY NO LONGER EVIDENT IN INFERIOR LEADS T WAVE INVERSION NO LONGER EVIDENT IN LATERAL LEADS Confirmed by MD JOON, KRISTAL ([id number]) on 05/11/2020 12:55:40 PM Referred By: Confirmed By:KRISTAL DUPREE MD
== END 2020-05-10 19:00 | disposition home or self-care (01) ==
LOC: JER 15:09
DX: R07.81 Pleurodynia (principal)
CPT/HCPCS: 36415; 71101-TC-LT-FY; 80048; 81003; 82550; 84484; 93005; 93010; 99285-25

== ENCOUNTER 2020-06-23 10:06 | Emergency (ER) | payer OTHER ==
[2020-06-23 10:20] VITALS: BMI 20.1
--- NOTE | 2020-06-23 10:34 | PDOC ---
History of Present Illness - General Chief Complaint: Headache Stated Complaint: LT. SIDE HEAD PAIN Time Seen by Provider: 06/23/20 10:31 - History of Present Illness Initial Comments: 06/23/20 10:33 HPI leaky heart valve, NIDDM, HTN, presents to the Ed with left sided occipital pain. Pt reports pain started 2 days ago after appointment for ear canal cleaning at ENT's office. Pain is characterised as sharp pain lasting a few s econds. she denies any vomiting, nausea, blurry vision, temporary vision loss, numbness, tingling, chest pain, shortness of breath. Patient denies BOYD, vision change, palpitations, cough, wheezing, orthopena, PND, leg swelling/pain, N/V, F,C, CP, SOB, urinary complaints, hematuria, BPR, abdominal pain, diarrhea, constipation, lightheadedness, weakness, sensory changes. PMHx: as noted above ROS: as noted SHx: Denies Etoh, IVDA, tobacco use Allergies: NKDA ROS: GENERAL/CONSTITUTIONAL: No fever or chills. No weakness. HEAD, EYES, EARS, NOSE AND THROAT: No change in vision. No ear pain or di scharge. No sore throat. CARDIOVASCULAR: No chest pain or shortness of breath RESPIRATORY: No cough, wheezing, or hemoptysis. GASTROINTESTINAL: No nausea, vomiting, diarrhea or constipation. GENITOURINARY: No dysuria, frequency, or change in urination. MUSCULOSKELETAL: No joint or muscle swelling or pain. No neck or back pain. SKIN: No rash NEUROLOGIC: No headache, vertigo, loss of consciousness, or change in strength/sensation. ENDOCRINE: No increased thirst. No abnormal weight change HEMATOLOGIC/LYMPHATIC: No anemia, easy bleeding, or history of blood clots. ALLERGIC/IMMUNOLOGIC: No hives or skin allergy. PE: GENERAL: Awake, alert, and fully oriented, in no acute distress HEAD: No signs of trauma, normocephalic, atraumatic EYES: PERRLA, EOMI, sclera anicteric, conjunctiva clear ENT: Auricles normal inspection, hearing grossly normal.left TM perforation at 1 o'clock position. nares patent, oropharynx clear without exudates. Moist mucosa NECK: Normal ROM, supple, no lymphadenopathy, JVD, or masses LUNGS: No distress, speaks full sentences, clear to auscultation bilaterally HEART: Regular rate and rhythm, normal S1 and S2, no murmurs, rubs or gallops, peripheral pulses normal and equal bilaterally. ABDOMEN: Soft, nontender, normoactive bowel sounds. No guarding, no rebound. No masses EXTREMITIES : Normal inspection, Normal range of motion, no edema. No clubbing or cyanosis NEUROLOGICAL: Cranial nerves II through XII grossly intact. Normal speech, normal gait, no focal sensorimotor deficits SKIN: Warm, Dry, normal turgor, no rashes or lesions noted MDM DDx including but not limited to: migraine, ear perforation, Workup: head CT, cbc, cmp, TX: Scores - HEART score - EKG: normal sinus rhythm, HR bpm, CA ms, QRS ms, QTc ms ED course Head CT no acute intracranial pathology -labs unremarkable meds: Reglan Re-assessment: pt's ENT doctor, Dr. Stuart Meehan, wants patient to follow up at his office tomorrow does not think abx drops are necessary at this time. 06/23/20 11:14 06/23/20 12:23 06/23/20 12:24 06/23/20 12:38 06/25/20 17:47 Past History - Medical History Allergies/Adverse Reactions: Allergies Allergy/AdvReac Type Severity Reaction Status Date / Time No Known Drug Allergies Allergy Verified 06/23/20 10:20 Home Medications: Ambulatory Orders Aspirin 81 mg PO DAILY 03/09/14 Enalapril Maleate [Vasotec -] 2.5 mg PO DAILY 03/09/14 Ranolazine [Ranexa -] 500 mg PO BID 03/09/14 Ezetimibe [Zetia] 10 mg PO HS 04/22/14 Famotidine [Pepcid -] 20 mg PO BID 03/02/15 Cholecalciferol (Vitamin D3) [Vitamin D3] 25 mcg PO DAILY 09/04/19 Furosemide [Lasix -] 20 mg PO DAILY 09/04/19 Levothyroxine [Synthroid -] 25 mcg PO DAILY 09/04/19 Metoprolol Succinate [Toprol Xl] 25 mg PO DAILY 09/04/19 Pioglitazone HCl [Actos] 15 mg PO DAILY 09/04/19 Rosuvastatin [Crestor -] 5 mg PO HS 09/04/19 Amoxicillin - [Amoxicillin 500mg Capsule -] 500 mg PO TID 4 Days #12 capsule 09/07/19 Amlodipine Besylate 5 mg PO DAILY #30 tablet 09/08/19 Anemia: No (IRON DEF) Asthma: No Cancer: No Cardiac Disorders: Yes (LEAKY VALVE) CVA: No COPD: No CHF: No Dementia: No Diabetes: Yes (NIDDM) GI Disorders: Yes (GERD/DIVERTICULOSIS) Disorders: No HTN: Yes Hypercholesterolemia: Yes Liver Disease: No Seizures: No Thyroid Disease: Yes - Surgical History Abdominal Surgery: Yes (ADHESIONS IN THE COLON) Appendectomy: Yes Cardiac Surgery: No Cholecystectomy: No Lung Surgery: No Neurologic Surgery: No Orthopedic Surgery: No - Reproductive History Is Patient Now?: No - Immunization History Immunization Up to Date: Yes - Psycho-Social/Smoking History Smoking Status: No Smoking History: Never smoked Have you smoked in the past 12 months: No Number of Cigarettes Smoked Daily: 0 If you are a former smoker, when did you quit?: 30YRS AGO - Substance Abuse Hx (Audit-C & DAST Scrn) How often the patient has a drink containing alcohol: Never Score: In Men: 4 or > Positive; In Women: 3 or > Positive: 0 Screen Result (Pos requires Nsg. Audit-10AR): Negative In the last yr the pt used illegal drug/Rx for NonMed reason: No Score: Yes response is considered Positive: 0 Screen Result (Positive result requires Nsg. DAST-10): Negative *Physical Exam - Vital Signs Last Vital Signs Temp Pulse Resp BP Pulse Ox 98.3 F 72 18 135/52 L 99 06/23/20 10:18 06/23/20 10:18 06/23/20 10:18 06/23/20 10:18 06/23/20 10:18 ED Treatment Course - LABORATORY CBC & Chemistry Diagram: 06/23/20 11:00 06/23/20 11:00 Discharge - Discharge Information Problems reviewed: Yes Clinical Impression/Diagnosis: Ear drum perforation Headache Qualifiers: Headache type: unspecified Headache chronicity pattern: unspecified pattern Intractability: not intractable Qualified Code(s): R51 - Headache Condition: Stable Disposition: HOME - Follow up/Referral Referrals: Geovani Rabago MD [Primary Care Provider] - Stuart Meehan MD [Staff Physician] - - Patient Discharge Instructions Patient Printed Discharge Instructions: DI for Tympanic Membrane Perforation- Adult Additional Instructions: follow up with your ENT doctor. Dr. Meehan tomorrow at 12: 30. he is aware of your arrival Also follow up your primary care doctor in the next 1-3 days. Please continue taking your home medications as directed. RETURN TO THE ER: if your pain worsens, you start developing blurry vision, dizziness, chest pain or shortness of breath. - Post Discharge Activity
[2020-06-23] MEDS ORDERED: METOCLOPRAMIDE HCL INJECTION 10 MG/2 ML VIAL IVPB ONE (10:57)
[2020-06-23] MEDS ORDERED: SODIUM CHLORIDE 0.9% 500 ML INFUS.BAG IV ONE (10:57)
[2020-06-23] MEDS ORDERED: METOCLOPRAMIDE HCL INJECTION 10 MG/2 ML VIAL ONE (11:03)
[2020-06-23 11:46] LABS: BASO % 0.7 % (0-2.0); EOS % 2.3 % (0-4.5); HEMATOCRIT 34.1 % (32.4-45.2); HEMOGLOBIN 11.2 GM/dL (10.7-15.3); LYMPH % 21.7 % (8-40); MCH 32.2 pg (25.7-33.7); MCHC 32.9 g/dl (32.0-36.0); MEAN PLT VOLUME 8.6 fl (7.5-11.1); MONO % 10.1 % (3.8-10.2); NEUT % 65.2 % (42.8-82.8); PLATELET COUNT 237 K/MM3 (134-434); RBC 3.48 M/mm3 (3.60-5.2); RDW 12.6 % (11.6-15.6); WHITE BLOOD COUNT 6.7 K/mm3 (4.0-10.0)
[2020-06-23 12:04] LABS: ALBUMIN 4.3 g/dl (3.4-5.0); BILIRUBIN,TOTAL 0.4 mg/dL (0.2-1); BLOOD UREA NITROGEN 23.7 mg/dL (7-18); CREATININE 1.3 mg/dL (0.55-1.3); POTASSIUM 4.4 mmol/L (3.5-5.1); TOT PROT 7.5 g/dl (6.4-8.2)
--- NOTE | 2020-06-23 12:47 | PDOC ---
Documentation entered by Scott James SCRIBE, acting as scribe for Asaf Block MD. Asaf Block MD: This documentation has been prepared by the Jacob melara Alexis, SCRIBE, under my direction and personally reviewed by me in its entirety. I confirm that the documentation accurately reflects all work, treatment, procedures, and medical decision making performed by me. Attending Attestation - Resident Resident Name: KendalVincelillianatristan - ED Attending Attestation I have performed the following: I have examined & evaluated the patient, The case was reviewed & discussed with the resident, I agree w/resident's findings & plan, Exceptions are as noted - HPI HPI: 06/23/20 12:23 The patient is an 89 year old female with a significant past medical history of NIDDM, leaky heart valve, DM, and former rib fractures who presents to the emergency department for evaluation of left sided head pain behind her ear that began two days ago. The patient reports pain is worsened with lying down and improved while sitting up. She endorses having wax removed from her ear by the ENT two days ago. The patient denies chest/abdominal/back pain, cough, and shortness of breath. Denies fever, chills, nausea, vomiting, and/or any GI symptoms. Denies any symptoms. Denies any other symptoms. Allergies: NKDA Social history: Former smoker, no reported use of alcohol or recreational drugs. PCP: Dr. Rabago - Physicial Exam PE: 06/23/20 12:53 Vitals: Triage Vital signs reviewed General Appearance: no acute distress, well nourished well developed, Head: Atraumatic, normocephalic Neck: No nucahal Rigidity Chest Wall: Nontender Cardiac: Regular rate and rhythm, no murmurs, no rubs, no gallops, Lungs: Clear to auscultation bilateral, good air movement bilaterally, Abdomen: Soft, nondistended, normal bowel sounds, nontender to palpation Extremities: Full range of motion to all extremities, no cyanosis, clubbing, or edema Skin: Warm and dry, no rashes or lesions, no petechiae Psych: normal mood, normal affect - Medical Decision Making 06/23/20 18:54 89 year old female with a significant past medical history of NIDDM, leaky heart valve, DM, and former rib fractures who presents to the emergency department for evaluation of left sided head pain behind her ear that began two days ago. Pain starts from ear where she had was removal done 2 days ago Now [facility] head CT wnl Feel better. Will f/u with ENT tomorrow Findings the need for follow up and strict return instructions d/w patient Discharge - Discharge Information Problems reviewed: Yes Clinical Impression/Diagnosis: Headache Qualifiers: Headache type: unspecified Headache chronicity pattern: unspecified pattern Intractability: not intractable Qualified Code(s): R51 - Headache Ear drum perforation Qualifiers: Laterality: left Qualified Code(s): H72.92 - Unspecified perforation of tympanic membrane, left ear Condition: Stable Disposition: HOME - Follow up/Referral Referrals: Geovani Rabago MD [Primary Care Provider] - Stuart Meehan MD [Staff Physician] - - Patient Discharge Instructions Patient Printed Discharge Instructions: DI for Tympanic Membrane Perforation- Adult Additional Instructions: follow up with your ENT doctor. Dr. Meehan tomorrow at 12: 30. he is aware of your arrival Also follow up your primary care doctor in the next 1-3 days. Please continue taking your home medications as directed. RETURN TO THE ER: if your pain worsens, you start developing blurry vision, dizziness, chest pain or shortness of breath. - Post Discharge Activity
[2020-06-23 13:21] VITALS: BP 136/79; PULSE 68; TEMP 98
== END 2020-06-23 13:00 | disposition home or self-care (01) ==
LOC: JER 10:06
PROC: 3E033GC Introduction of Other Therapeutic Substance into Peripheral Vein, Percutaneous Approach (ICD-10-PCS; principal; 2020-06-23)
DX: R51 Headache (principal); H72.92 Unspecified perforation of tympanic membrane, left ear
CPT/HCPCS: 36415; 70450-TC; 80053; 85025; 99284-25

== ENCOUNTER 2020-11-18 17:28 | Inpatient (IN) | payer OTHER ==
[2020-11-18 18:10] VITALS: BMI 27.7
[2020-11-18] MEDS ORDERED: ACETAMINOPHEN INJECTION 100 ML IVPB ONE (18:23)
[2020-11-18] MEDS ORDERED: ACETAMINOPHEN 1000 MG/100 ML VIAL (NON FORMULARY) IVPB ONE (18:34)
[2020-11-18 19:26] LABS: BASO % 0.1 % (0-2.0); HEMATOCRIT 33.9 % (32.4-45.2); HEMOGLOBIN 11.3 GM/dL (10.7-15.3); LYMPH % 12.3 % (8-40); MCH 32.6 pg (25.7-33.7); MCHC 33.3 g/dl (32.0-36.0); MEAN CELL VOLUME 97.7 fl (80-96); MEAN PLT VOLUME 9.8 fl (7.5-11.1); MONO % 13.3 % (3.8-10.2); NEUT % 74.3 % (42.8-82.8); PLATELET COUNT 144 K/MM3 (134-434); RBC 3.47 M/mm3 (3.60-5.2); RDW 12.8 % (11.6-15.6); WHITE BLOOD COUNT 7.1 K/mm3 (4.0-10.0)
[2020-11-18 19:35] LABS: INR 1.05 (0.83-1.09); PROTHROMBIN TIME (PATIENT) 12.7 SEC (9.7-13.0)
[2020-11-18 19:37] LABS: ACTIVATED PTT 34.4 SECONDS (25.2-36.5)
[2020-11-18 19:44] LABS: CHLORIDE 100 mmol/L (98-107); SODIUM 137 mmol/L (136-145)
[2020-11-18 19:48] LABS: ALBUMIN 3.6 g/dl (3.4-5.0); CALCIUM 8.2 mg/dL (8.5-10.1)
[2020-11-18 19:49] LABS: ANION GAP 7 MMOL/L (8-16); BLOOD UREA NITROGEN 24.4 mg/dL (7-18); CO2 29 mmol/L (21-32); GLUCOSE,RANDOM 104 mg/dL (74-106)
[2020-11-18 19:52] LABS: CREATININE 1.1 mg/dL (0.55-1.3); SGOT/AST 34 U/L (15-37); SGPT/ALT 26 U/L (13-61)
[2020-11-18 19:53] LABS: BILIRUBIN,TOTAL 0.4 mg/dL (0.2-1); TOT PROT 6.9 g/dl (6.4-8.2)
[2020-11-18 19:54] LABS: ALK PHOS 63 U/L (45-117)
[2020-11-18] MEDS ORDERED: SODIUM CHLORIDE 0.9% 500 ML INFUS.BAG IV ONE (20:09)
[2020-11-18 20:16] LABS: LDH 211 U/L (84-246)
[2020-11-18] MEDS ORDERED: KETOROLAC TROMETHAMINE 15 MG/ML VIAL IVPUSH ONE (20:16)
[2020-11-18] MEDS ORDERED: KETOROLAC TROMETHAMINE 15 MG/ML VIAL ONE (20:39)
[2020-11-18] MEDS ORDERED: DEXAMETHASONE SOD PHOSPHATE 4 MG/1 ML VIAL IVPUSH ONE (21:13)
[2020-11-18 21:23] LABS: EPI CELLS >36 /uL (0-25.1); HYALINE CASTS 1 /uL (0-3.1); PH,URINE 5.5 (5.0-8.0); URINE APPEARANCE CLEAR; URINE BACTERIA 106 /uL (0-1359); URINE BILIRUBIN NEGATIVE (NEGATIVE); URINE COLOR YELLOW; URINE GLUCOSE (UA) NEGATIVE (NEGATIVE); URINE KETONE TRACE (NEGATIVE); URINE LEUK ESTERASE 1+ (NEGATIVE); URINE NITRITE NEGATIVE (NEGATIVE); URINE PROTEIN TRACE (NEGATIVE); URINE RBC 7 /uL (0-23.9); URINE WBC 16 /uL (0-25.8)
[2020-11-18] MEDS ORDERED: DEXAMETHASONE SOD PHOSPHATE 10 MG/1 ML VIAL ONE (21:51)
[2020-11-18] MEDS ORDERED: ACETAMINOPHEN 325 MG TABLET (FP) PO PRN (23:46)
[2020-11-19] MEDS: INSULIN SLIDING SCALE (NOVOLOG) 1 VIAL SQ SCH ×4 (06:05→21:33)
[2020-11-19] MEDS: LEVOTHYROXINE NA 50 MCG TABLET (FP) PO SCH (06:53)
[2020-11-19 06:56] LABS: HEMATOCRIT 32.4 % (32.4-45.2); MEAN CELL VOLUME 96.9 fl (80-96); MEAN PLT VOLUME 9.5 fl (7.5-11.1); PLATELET COUNT 141 K/MM3 (134-434); RBC 3.34 M/mm3 (3.60-5.2); RDW 12.9 % (11.6-15.6); WHITE BLOOD COUNT 7.8 K/mm3 (4.0-10.0)
[2020-11-19] MEDS ORDERED: INSULIN SLIDING SCALE (NOVOLOG) 1 VIAL SQ SCH (07:00)
[2020-11-19 07:21] LABS: CALCIUM 7.8 mg/dL (8.5-10.1)
[2020-11-19 07:22] LABS: ALBUMIN 3.3 g/dl (3.4-5.0); BLOOD UREA NITROGEN 25.2 mg/dL (7-18)
[2020-11-19 07:25] LABS: PHOSPHOROUS 4.4 mg/dL (2.5-4.9)
[2020-11-19 07:27] LABS: BILIRUBIN,TOTAL 0.4 mg/dL (0.2-1); TOT PROT 6.3 g/dl (6.4-8.2)
[2020-11-19] MEDS ORDERED: cefTRIAXone SODIUM 1 GM VIAL ONE (08:44)
[2020-11-19] MEDS ORDERED: DEXTROSE 5%-WATER - 50 ML IVPB ONE (08:44)
[2020-11-19] MEDS: ASCORBIC ACID 500 MG TABLET (FP) PO SCH (09:01)
[2020-11-19] MEDS: ASPIRIN 81 MG CHEWABLE TABLETS PO SCH (09:01)
[2020-11-19] MEDS: FAMOTIDINE 20 MG TABLET PO SCH (09:01)
[2020-11-19] MEDS: CEFTRIAXONE 1 GM in DEXTROSE 5%-WATER - 50 ML IVPB SCH (09:01)
[2020-11-19] MEDS: ZINC SULFATE 220 MG CAPSULE (FP) PO SCH ×2 (09:01→21:27)
[2020-11-19] MEDS: ENOXAPARIN NA (PORCINE) 40 MG/0.4 ML DISP.SYRIN SQ SCH (09:01)
[2020-11-19] MEDS: FUROSEMIDE 20 MG TABLET (FP) PO SCH (09:01)
[2020-11-19] MEDS: DEXAMETHASONE SOD PHOSPHATE 4 MG/1 ML VIAL IVPUSH SCH (09:01)
[2020-11-19] MEDS: metoPROLOL SUCCINATE 25 MG TAB.SR.24H (FP) PO SCH (09:02)
[2020-11-19] MEDS: amLODIPine BESYLATE 5 MG TABLET (FP) PO SCH (09:02)
[2020-11-19 10:09] LABS: ERYTHROCYTE SEDIMENTATION RATE 79 mm/hr (0-30)
[2020-11-19] MEDS: CHOLECALCIFEROL (VIT D3) 5000 UNITS (125 MCG) CAP PO SCH (10:15)
[2020-11-19] MEDS ORDERED: INSULIN (NOVOLOG) ASPART 100 UNITS/ML 10ML VIAL ONE (11:52)
[2020-11-19] MEDS: ENALAPRIL MALEATE 2.5 MG TABLET PO SCH (12:24)
[2020-11-19] MEDS: ROSUVASTATIN CA 5 MG TABLET (FP) PO SCH (21:27)
[2020-11-20] MEDS: LEVOTHYROXINE NA 50 MCG TABLET (FP) PO SCH (06:14)
[2020-11-20] MEDS: INSULIN SLIDING SCALE (NOVOLOG) 1 VIAL SQ SCH ×4 (06:26→22:09)
[2020-11-20] MEDS ORDERED: DEXTROSE 5%-WATER - 50 ML IVPB ONE (10:15)
[2020-11-20] MEDS ORDERED: cefTRIAXone SODIUM 1 GM VIAL ONE (10:15)
[2020-11-20] MEDS: CHOLECALCIFEROL (VIT D3) 5000 UNITS (125 MCG) CAP PO SCH (10:20)
[2020-11-20] MEDS: amLODIPine BESYLATE 5 MG TABLET (FP) PO SCH (10:20)
[2020-11-20] MEDS: ENALAPRIL MALEATE 2.5 MG TABLET PO SCH (10:20)
[2020-11-20] MEDS: DEXAMETHASONE SOD PHOSPHATE 4 MG/1 ML VIAL IVPUSH SCH (10:20)
[2020-11-20] MEDS: ASCORBIC ACID 500 MG TABLET (FP) PO SCH (10:20)
[2020-11-20] MEDS: ZINC SULFATE 220 MG CAPSULE (FP) PO SCH ×2 (10:20→22:07)
[2020-11-20] MEDS: ENOXAPARIN NA (PORCINE) 40 MG/0.4 ML DISP.SYRIN SQ SCH (10:20)
[2020-11-20] MEDS: metoPROLOL SUCCINATE 25 MG TAB.SR.24H (FP) PO SCH (10:21)
[2020-11-20] MEDS: FAMOTIDINE 20 MG TABLET PO SCH (10:21)
[2020-11-20] MEDS: ASPIRIN 81 MG CHEWABLE TABLETS PO SCH (10:21)
[2020-11-20] MEDS: CEFTRIAXONE 1 GM in DEXTROSE 5%-WATER - 50 ML IVPB SCH (10:21)
[2020-11-20] MEDS: FUROSEMIDE 20 MG TABLET (FP) PO SCH (10:21)
[2020-11-20] MEDS ORDERED: REMDESIVIR 200 MG in SODIUM CHLORIDE 210 ML IVPB ONE (14:42)
[2020-11-20 16:14] LABS: CALCIUM 8.1 mg/dL (8.5-10.1)
[2020-11-20 16:15] LABS: BLOOD UREA NITROGEN 25.5 mg/dL (7-18)
[2020-11-20 16:18] LABS: CREATININE 1.1 mg/dL (0.55-1.3)
[2020-11-20 16:20] LABS: BILIRUBIN,TOTAL 0.4 mg/dL (0.2-1); TOT PROT 6.2 g/dl (6.4-8.2)
[2020-11-20 16:47] LABS: POTASSIUM 4.4 mmol/L (3.5-5.1)
[2020-11-20] MEDS: ROSUVASTATIN CA 5 MG TABLET (FP) PO SCH (22:06)
[2020-11-21] MEDS: LEVOTHYROXINE NA 50 MCG TABLET (FP) PO SCH (06:17)
[2020-11-21] MEDS: INSULIN SLIDING SCALE (NOVOLOG) 1 VIAL SQ SCH ×4 (06:17→21:16)
[2020-11-21 07:33] LABS: BASO % 0.1 % (0-2.0); HEMATOCRIT 27.9 % (32.4-45.2); HEMOGLOBIN 9.3 GM/dL (10.7-15.3); LYMPH % 10.9 % (8-40); MCH 32.6 pg (25.7-33.7); MCHC 33.3 g/dl (32.0-36.0); MEAN CELL VOLUME 97.9 fl (80-96); MEAN PLT VOLUME 10.4 fl (7.5-11.1); PLATELET COUNT 138 K/MM3 (134-434); RBC 2.85 M/mm3 (3.60-5.2); RDW 12.6 % (11.6-15.6); WHITE BLOOD COUNT 6.4 K/mm3 (4.0-10.0)
[2020-11-21] MEDS: CHOLECALCIFEROL (VIT D3) 5000 UNITS (125 MCG) CAP PO SCH (10:26)
[2020-11-21] MEDS: DEXAMETHASONE SOD PHOSPHATE 4 MG/1 ML VIAL IVPUSH SCH (10:26)
[2020-11-21] MEDS: FUROSEMIDE 20 MG TABLET (FP) PO SCH (10:26)
[2020-11-21] MEDS: ZINC SULFATE 220 MG CAPSULE (FP) PO SCH (10:26)
[2020-11-21] MEDS: ASCORBIC ACID 500 MG TABLET (FP) PO SCH ×2 (10:26→21:02)
[2020-11-21] MEDS: ENOXAPARIN NA (PORCINE) 40 MG/0.4 ML DISP.SYRIN SQ SCH (10:26)
[2020-11-21] MEDS: ASPIRIN 81 MG CHEWABLE TABLETS PO SCH (10:26)
[2020-11-21] MEDS: FAMOTIDINE 20 MG TABLET PO SCH (10:27)
[2020-11-21] MEDS: amLODIPine BESYLATE 5 MG TABLET (FP) PO SCH (10:32)
[2020-11-21] MEDS: metoPROLOL SUCCINATE 25 MG TAB.SR.24H (FP) PO SCH (10:32)
[2020-11-21] MEDS: ENALAPRIL MALEATE 2.5 MG TABLET PO SCH (10:32)
[2020-11-21] MEDS ORDERED: REMDESIVIR 100 MG in SODIUM CHLORIDE 230 ML IVPB SCH (14:42)
[2020-11-21] MEDS ORDERED: guaiFENesin 200 MG/10 ML 10 ML UNIT-DOSE CUPS PO PRN (15:37)
[2020-11-21] MEDS: ATORVASTATIN CA 40 MG TABLET (FP) PO SCH (21:02)
[2020-11-21] MEDS: levETIRAcetam 500 MG TABLET (FP) PO SCH (21:02)
[2020-11-21] MEDS: MELATONIN 5 MG TABLETS PO SCH (21:02)
[2020-11-21] MEDS: RANOLAZINE E.R. 500 MG TABLET (FP) PO SCH (21:02)
[2020-11-22] MEDS: INSULIN SLIDING SCALE (NOVOLOG) 1 VIAL SQ SCH ×4 (06:04→21:51)
[2020-11-22] MEDS: LEVOTHYROXINE NA 75 MCG TABLET (FP) PO SCH (06:38)
[2020-11-22] MEDS ORDERED: LEVOTHYROXINE NA 75 MCG TABLET (FP) PO SCH (07:00)
[2020-11-22 10:00] LABS: HEMATOCRIT 25.8 % (32.4-45.2); HEMOGLOBIN 8.6 GM/dL (10.7-15.3); MCH 32.3 pg (25.7-33.7); MCHC 33.4 g/dl (32.0-36.0); MEAN CELL VOLUME 96.8 fl (80-96); MEAN PLT VOLUME 10.2 fl (7.5-11.1); PLATELET COUNT 164 K/MM3 (134-434); RBC 2.67 M/mm3 (3.60-5.2); RDW 12.5 % (11.6-15.6); WHITE BLOOD COUNT 5.9 K/mm3 (4.0-10.0)
[2020-11-22 10:23] LABS: POTASSIUM 3.8 mmol/L (3.5-5.1)
[2020-11-22 10:24] LABS: CALCIUM 8.3 mg/dL (8.5-10.1)
[2020-11-22 10:26] LABS: ALBUMIN 2.9 g/dl (3.4-5.0); BLOOD UREA NITROGEN 32.2 mg/dL (7-18); MAGNESIUM 1.9 mg/dL (1.8-2.4)
[2020-11-22 10:28] LABS: CREATININE 0.9 mg/dL (0.55-1.3)
[2020-11-22 10:30] LABS: BILIRUBIN,TOTAL 0.3 mg/dL (0.2-1); TOT PROT 5.8 g/dl (6.4-8.2)
[2020-11-22 10:43] LABS: PHOSPHOROUS 3.4 mg/dL (2.5-4.9)
[2020-11-22] MEDS: RANOLAZINE E.R. 500 MG TABLET (FP) PO SCH ×2 (11:00→21:43)
[2020-11-22] MEDS: DEXAMETHASONE SOD PHOSPHATE 4 MG/1 ML VIAL IVPUSH SCH (11:00)
[2020-11-22] MEDS: CHOLECALCIFEROL (VIT D3) 1,000 UNIT (25 MCG) TABLET PO SCH (11:00)
[2020-11-22] MEDS: ASPIRIN 81 MG CHEWABLE TABLETS PO SCH (11:00)
[2020-11-22] MEDS: levETIRAcetam 500 MG TABLET (FP) PO SCH ×2 (11:01→21:43)
[2020-11-22] MEDS: ZINC SULFATE 220 MG CAPSULE (FP) PO SCH (11:01)
[2020-11-22] MEDS: FAMOTIDINE 20 MG TABLET PO SCH (11:01)
[2020-11-22] MEDS: ENOXAPARIN NA (PORCINE) 40 MG/0.4 ML DISP.SYRIN SQ SCH (11:01)
[2020-11-22] MEDS: DIVALPROEX NA *ER* EXTEND REL 250 MG TABLET.SA PO SCH (11:05)
[2020-11-22] MEDS: DONEPEZIL HCL 10 MG TABLET (FP) PO SCH (11:05)
[2020-11-22] MEDS: ASCORBIC ACID 500 MG TABLET (FP) PO SCH ×2 (11:06→21:43)
[2020-11-22] MEDS: amLODIPine BESYLATE 5 MG TABLET (FP) PO SCH (11:22)
[2020-11-22] MEDS: metoPROLOL SUCCINATE 25 MG TAB.SR.24H (FP) PO SCH (11:22)
[2020-11-22] MEDS: ENALAPRIL MALEATE 2.5 MG TABLET PO SCH (11:22)
[2020-11-22 13:17] LABS: ERYTHROCYTE SEDIMENTATION RATE 64 mm/hr (0-30)
[2020-11-22] MEDS ORDERED: FAMOTIDINE 20 MG TABLET PO SCH ×2 (16:36→21:15)
[2020-11-22] MEDS: EZETIMIBE 10 MG TABLET (FP) PO SCH (18:28)
[2020-11-22] MEDS ORDERED: INSULIN (NOVOLOG) ASPART 100 UNITS/ML 10ML VIAL ONE (21:39)
[2020-11-22] MEDS: MELATONIN 5 MG TABLETS PO SCH (21:43)
[2020-11-22] MEDS: ATORVASTATIN CA 40 MG TABLET (FP) PO SCH (21:43)
[2020-11-23] MEDS: LEVOTHYROXINE NA 75 MCG TABLET (FP) PO SCH (06:08)
[2020-11-23] MEDS: INSULIN SLIDING SCALE (NOVOLOG) 1 VIAL SQ SCH ×3 (06:08→17:15)
[2020-11-23 06:31] LABS: HEMATOCRIT 27.6 % (32.4-45.2); HEMOGLOBIN 9.2 GM/dL (10.7-15.3); MCHC 33.2 g/dl (32.0-36.0); MEAN CELL VOLUME 99.4 fl (80-96); MEAN PLT VOLUME 9.7 fl (7.5-11.1); PLATELET COUNT 172 K/MM3 (134-434); RBC 2.78 M/mm3 (3.60-5.2); WHITE BLOOD COUNT 7.2 K/mm3 (4.0-10.0)
[2020-11-23] MEDS ORDERED: PT OWN MED DRAWER 7, Y5N ONE ×2 (10:26→15:07)
[2020-11-23] MEDS: ENOXAPARIN NA (PORCINE) 40 MG/0.4 ML DISP.SYRIN SQ SCH (11:10)
[2020-11-23] MEDS: amLODIPine BESYLATE 5 MG TABLET (FP) PO SCH (11:11)
[2020-11-23] MEDS: ASPIRIN 81 MG CHEWABLE TABLETS PO SCH (11:11)
[2020-11-23] MEDS: levETIRAcetam 500 MG TABLET (FP) PO SCH (11:11)
[2020-11-23] MEDS: DONEPEZIL HCL 10 MG TABLET (FP) PO SCH (11:12)
[2020-11-23] MEDS: ASCORBIC ACID 500 MG TABLET (FP) PO SCH (11:14)
[2020-11-23] MEDS: ENALAPRIL MALEATE 2.5 MG TABLET PO SCH ×2 (11:14→15:24)
[2020-11-23] MEDS: CHOLECALCIFEROL (VIT D3) 1,000 UNIT (25 MCG) TABLET PO SCH (11:15)
[2020-11-23] MEDS: ZINC SULFATE 220 MG CAPSULE (FP) PO SCH (11:16)
[2020-11-23] MEDS: RANOLAZINE E.R. 500 MG TABLET (FP) PO SCH (11:17)
[2020-11-23] MEDS: DIVALPROEX NA *ER* EXTEND REL 250 MG TABLET.SA PO SCH (11:17)
[2020-11-23] MEDS: DEXAMETHASONE SOD PHOSPHATE 4 MG/1 ML VIAL IVPUSH SCH ×2 (11:18→16:10)
[2020-11-23] MEDS: metoPROLOL SUCCINATE 25 MG TAB.SR.24H (FP) PO SCH ×2 (11:18→11:42)
[2020-11-23 12:22] LABS: CALCIUM 8.7 mg/dL (8.5-10.1)
[2020-11-23 12:23] LABS: ALBUMIN 2.8 g/dl (3.4-5.0); BLOOD UREA NITROGEN 29.3 mg/dL (7-18)
[2020-11-23 12:26] LABS: CREATININE 0.9 mg/dL (0.55-1.3); PHOSPHOROUS 3.2 mg/dL (2.5-4.9)
[2020-11-23 12:28] LABS: BILIRUBIN,TOTAL 0.5 mg/dL (0.2-1); TOT PROT 5.6 g/dl (6.4-8.2)
[2020-11-23 15:15] VITALS: BP 113/47; PULSE 59; TEMP 98.4
[2020-11-23] MEDS: EZETIMIBE 10 MG TABLET (FP) PO SCH (15:24)
[2020-11-23] MEDS ORDERED: predniSONE 20 MG TABLET (UD) PO ONE (16:46)
== END 2020-11-23 19:20 | disposition home health service (06) | DRG 177 ==
LOC: JER 17:28 → JERBED 21:14 → J7W 11-19 00:50
PROVIDERS: ADMIT Internal Medicine; ATTEND Internal Medicine
PROC: XW033E5 Introduction of Remdesivir Anti-infective into Peripheral Vein, Percutaneous Approach, New Technology Group 5 (ICD-10-PCS; principal; 2020-11-19)
PROC: XW13325 Transfusion of Convalescent Plasma (Nonautologous) into Peripheral Vein, Percutaneous Approach, New Technology Group 5 (ICD-10-PCS; 2020-11-19)
DX: U07.1 COVID-19 (principal); J12.82 Pneumonia due to coronavirus disease 2019; J96.01 Acute respiratory failure with hypoxia; E11.9 Type 2 diabetes mellitus without complications; K21.9 Gastro-esophageal reflux disease without esophagitis; E78.5 Hyperlipidemia, unspecified; E03.9 Hypothyroidism, unspecified; I10 Essential (primary) hypertension; R74.01 Elevation of levels of liver transaminase levels; D64.9 Anemia, unspecified; F03.90 Unspecified dementia, unspecified severity, without behavioral disturbance, psychotic disturbance, mood disturbance, and anxiety; N18.9 Chronic kidney disease, unspecified
CPT/HCPCS: 36415; 36430; 70450-TC; 70551-TC; 71045-TC-FY; 80053; 81003; 82272; 82550; 82607; 82728; 82962; 83605; 83615; 83735; 84100; 84443; 84484; 85025; 85027; 85379; 85610; 85651; 85730; 86140; 86850; 86900; 86901; 87040; 87086; 87804; 93005; 93010; 94761; 97116-GP; 97161-GP; 99285-25; C9803; J0131; P9017; U0003

== ENCOUNTER 2021-08-28 15:17 | Inpatient (IN) | payer OTHER ==
[2021-08-28] MEDS ORDERED: ONDANSETRON 4 MG/2 ML VIAL IVPUSH ONE (18:31)
[2021-08-28] MEDS ORDERED: SODIUM CHLORIDE 0.9% 500 ML INFUS.BAG IV ONE (18:31)
[2021-08-28] MEDS ORDERED: ONDANSETRON 4 MG/2 ML VIAL ONE (18:52)
[2021-08-28 19:05] LABS: EPI CELLS 5 /uL (0-25.1); HYALINE CASTS 0 /uL (0-3.1); URINE APPEARANCE CLEAR; URINE BACTERIA 15 /uL (0-1359); URINE BILIRUBIN NEGATIVE (NEGATIVE); URINE COLOR YELLOW; URINE GLUCOSE (UA) NEGATIVE (NEGATIVE); URINE KETONE NEGATIVE (NEGATIVE); URINE LEUK ESTERASE TRACE (NEGATIVE); URINE NITRITE NEGATIVE (NEGATIVE); URINE PROTEIN NEGATIVE (NEGATIVE); URINE RBC 4 /uL (0-23.9); URINE UROBILINOGEN 0.2 mg/dL (0.2-1.0); URINE WBC 13 /uL (0-25.8)
[2021-08-28 20:01] LABS: BASO % 0.7 % (0-2.0); EOS % 1.5 % (0-4.5); HEMATOCRIT 31.4 % (32.4-45.2); HEMOGLOBIN 10.9 GM/dL (10.7-15.3); LYMPH % 20.4 % (8-40); MCH 31.4 pg (25.7-33.7); MCHC 34.7 g/dl (32.0-36.0); MEAN CELL VOLUME 90.7 fl (80-96); MEAN PLT VOLUME 9.5 fl (7.5-11.1); MONO % 8.4 % (3.8-10.2); PLATELET COUNT 195 10^3/uL (134-434); RBC 3.46 M/mm3 (3.60-5.2); RDW 12.1 % (11.6-15.6); WHITE BLOOD COUNT 7.4 K/mm3 (4.0-10.0)
[2021-08-28 20:16] LABS: CHLORIDE 109 mmol/L (98-107); SODIUM 143 mmol/L (136-145)
[2021-08-28 20:18] LABS: CALCIUM 8.7 mg/dL (8.5-10.1)
[2021-08-28 20:19] LABS: ALBUMIN 3.7 g/dl (3.4-5.0); ANION GAP 7 MMOL/L (8-16); BLOOD UREA NITROGEN 65.8 mg/dL (7-18); CO2 26 mmol/L (21-32); GLUCOSE,RANDOM 99 mg/dL (74-106); MAGNESIUM 2.3 mg/dL (1.8-2.4)
[2021-08-28 20:22] LABS: CREATININE 1.7 mg/dL (0.55-1.3); SGOT/AST 17 U/L (15-37); SGPT/ALT 20 U/L (13-61)
[2021-08-28 20:24] LABS: BILIRUBIN,TOTAL 0.4 mg/dL (0.2-1); TOT PROT 6.6 g/dl (6.4-8.2)
[2021-08-28 20:25] LABS: ALK PHOS 79 U/L (45-117)
[2021-08-28] MEDS ORDERED: LACTATED RINGERS SOLUTION 1000 ML INFUS.BAG IV ONE (20:41)
[2021-08-29] MEDS: LACTATED RINGERS SOLUTION 1,000 ML/1,000 ML INFUS.BAG IV SCH ×2 (08:45→22:48)
[2021-08-29] MEDS: HEPARIN NA (PORCINE) 5,000 UNITS/ML 1ML VIAL SQ SCH ×3 (08:47→22:47)
[2021-08-29] MEDS ORDERED: HEPARIN NA (PORCINE) 5,000 UNITS/ML 1ML VIAL ONE ×3 (08:47→22:40)
[2021-08-29 09:06] LABS: HEMATOCRIT 29.9 % (32.4-45.2); HEMOGLOBIN 10.2 GM/dL (10.7-15.3); MCH 31.5 pg (25.7-33.7); MCHC 34.1 g/dl (32.0-36.0); MEAN CELL VOLUME 92.2 fl (80-96); MEAN PLT VOLUME 9.7 fl (7.5-11.1); PLATELET COUNT 171 10^3/uL (134-434); RBC 3.25 M/mm3 (3.60-5.2); RDW 12.3 % (11.6-15.6); WHITE BLOOD COUNT 6.1 K/mm3 (4.0-10.0)
[2021-08-29 09:15] LABS: CHLORIDE 113 mmol/L (98-107); SODIUM 144 mmol/L (136-145)
[2021-08-29 09:16] LABS: CALCIUM 8.6 mg/dL (8.5-10.1)
[2021-08-29 09:17] LABS: ANION GAP 2 MMOL/L (8-16); BLOOD UREA NITROGEN 47.9 mg/dL (7-18); CO2 29 mmol/L (21-32); GLUCOSE,RANDOM 97 mg/dL (74-106); MAGNESIUM 2.2 mg/dL (1.8-2.4)
[2021-08-29 09:20] LABS: CREATININE 1.5 mg/dL (0.55-1.3); PHOSPHOROUS 2.5 mg/dL (2.5-4.9)
[2021-08-29] MEDS ORDERED: MELATONIN 5 MG TABLETS PO SCH (22:00)
[2021-08-29] MEDS ORDERED: ASCORBIC ACID 500 MG TABLET (FP) ONE (22:39)
[2021-08-29] MEDS ORDERED: MELATONIN 5 MG TABLETS ONE (22:39)
[2021-08-29] MEDS ORDERED: MECLIZINE HCL 12.5 MG TABLET ONE (22:40)
[2021-08-29] MEDS: MECLIZINE HCL 12.5 MG TABLET PO SCH (22:46)
[2021-08-29] MEDS: INSULIN SLIDING SCALE (NOVOLOG) 1 VIAL SQ SCH (22:48)
[2021-08-29] MEDS: ASCORBIC ACID 500 MG TABLET (FP) PO SCH (22:48)
[2021-08-29] MEDS: RANOLAZINE E.R. 500 MG TABLET (FP) PO SCH (23:40)
[2021-08-30 00:42] VITALS: BMI 18.6
[2021-08-30] MEDS: MECLIZINE HCL 12.5 MG TABLET PO SCH ×2 (06:36→13:13)
[2021-08-30] MEDS: HEPARIN NA (PORCINE) 5,000 UNITS/ML 1ML VIAL SQ SCH ×2 (06:36→13:13)
[2021-08-30] MEDS: INSULIN SLIDING SCALE (NOVOLOG) 1 VIAL SQ SCH ×2 (06:37→11:03)
[2021-08-30] MEDS ORDERED: PT OWN MED DRAWER 7, Y5N ONE ×2 (06:49→13:08)
[2021-08-30 09:11] LABS: BASO % 0.5 % (0-2.0); EOS % 2.1 % (0-4.5); HEMATOCRIT 29.8 % (32.4-45.2); HEMOGLOBIN 10.2 GM/dL (10.7-15.3); LYMPH % 26.6 % (8-40); MCH 31.6 pg (25.7-33.7); MCHC 34.3 g/dl (32.0-36.0); MEAN CELL VOLUME 92.3 fl (80-96); MEAN PLT VOLUME 10.2 fl (7.5-11.1); MONO % 10.8 % (3.8-10.2); PLATELET COUNT 153 10^3/uL (134-434); RBC 3.22 M/mm3 (3.60-5.2); RDW 12.3 % (11.6-15.6); WHITE BLOOD COUNT 5.6 K/mm3 (4.0-10.0)
[2021-08-30] MEDS ORDERED: PIOGLITAZONE HCL 15 MG TABLET PO SCH (10:00)
[2021-08-30] MEDS ORDERED: LEVOTHYROXINE NA 75 MCG TABLET (FP) PO SCH ×2 (10:00→11:09)
[2021-08-30] MEDS ORDERED: EZETIMIBE 10 MG TABLET (FP) PO SCH (10:00)
[2021-08-30] MEDS ORDERED: metoPROLOL SUCCINATE 25 MG TAB.SR.24H (FP) PO SCH (10:00)
[2021-08-30] MEDS ORDERED: DONEPEZIL HCL 10 MG TABLET (FP) PO SCH (10:00)
[2021-08-30] MEDS ORDERED: ENALAPRIL MALEATE 10 MG TABLET PO SCH (10:00)
[2021-08-30] MEDS ORDERED: CHOLECALCIFEROL (VIT D3) 1,000 UNIT (25 MCG) TABLET PO SCH (10:00)
[2021-08-30 10:15] LABS: BLOOD UREA NITROGEN 29.7 mg/dL (7-18); MAGNESIUM 2.1 mg/dL (1.8-2.4)
[2021-08-30 10:17] LABS: CREATININE 1.1 mg/dL (0.55-1.3)
[2021-08-30 10:18] LABS: PHOSPHOROUS 2.4 mg/dL (2.5-4.9)
[2021-08-30 10:19] LABS: BILIRUBIN,TOTAL 0.4 mg/dL (0.2-1)
[2021-08-30 10:20] LABS: TOT PROT 5.3 g/dl (6.4-8.2)
[2021-08-30 10:21] LABS: ALBUMIN 2.8 g/dl (3.4-5.0)
[2021-08-30] MEDS: ASCORBIC ACID 500 MG TABLET (FP) PO SCH (10:57)
[2021-08-30] MEDS: RANOLAZINE E.R. 500 MG TABLET (FP) PO SCH (10:57)
[2021-08-30 15:27] VITALS: BP 122/54; PULSE 65; TEMP 98.5
== END 2021-08-30 18:07 | disposition home health service (06) | DRG 682 ==
LOC: JER 15:17 → JERBED 20:42 → J5S 08-29 23:09
PROVIDERS: ATTEND Internal Medicine
DX: N17.9 Acute kidney failure, unspecified (principal); G93.41 Metabolic encephalopathy; I21.29 ST elevation (STEMI) myocardial infarction involving other sites; E11.9 Type 2 diabetes mellitus without complications; I10 Essential (primary) hypertension; F03.90 Unspecified dementia, unspecified severity, without behavioral disturbance, psychotic disturbance, mood disturbance, and anxiety; J44.9 Chronic obstructive pulmonary disease, unspecified; E86.0 Dehydration; K21.9 Gastro-esophageal reflux disease without esophagitis; E78.5 Hyperlipidemia, unspecified; E03.9 Hypothyroidism, unspecified
CPT/HCPCS: 36415; 70450-TC; 71045-TC-FY; 76775-TC; 80048; 80053; 80164; 80177; 81003; 82436; 82607; 82746; 82962; 83036; 83735; 84100; 84133; 84300; 84443; 84484; 85025; 85027; 87086; 87804; 93005; 93010; 93306-TC; 97116-GP; 97162-GP; 99285-25; C9803; J1644; U0003; U0005

== ENCOUNTER 2022-03-16 12:10 | Inpatient (IN) | payer OTHER ==
[2022-03-16 13:07] LABS: BASO % 0.5 % (0-2.0); EOS % 0.4 % (0-4.5); HEMATOCRIT 28.8 % (32.4-45.2); HEMOGLOBIN 9.4 GM/dL (10.7-15.3); LYMPH % 9.2 % (8-40); MCH 29.8 pg (25.7-33.7); MCHC 32.7 g/dl (32.0-36.0); MEAN CELL VOLUME 91.1 fl (80-96); MEAN PLT VOLUME 10.4 fl (7.5-11.1); MONO % 8.1 % (3.8-10.2); NEUT % 81.8 % (42.8-82.8); PLATELET COUNT 121 10^3/uL (134-434); RBC 3.16 M/mm3 (3.60-5.2); RDW 13.3 % (11.6-15.6); WHITE BLOOD COUNT 11.4 K/mm3 (4.0-10.0)
[2022-03-16 13:14] LABS: INR 1.48 (0.83-1.09); PROTHROMBIN TIME (PATIENT) 17.1 SEC (9.7-13.0)
[2022-03-16 13:16] LABS: ACTIVATED PTT 36.7 SECONDS (25.2-36.5)
[2022-03-16 13:19] LABS: VENOUS BASE EXCESS -3.9 mmol/L (-2-2); VENOUS O2 SATURATION 67.6 % (70-80); VENOUS PH 7.307 (7.310-7.410)
[2022-03-16 13:51] LABS: CHLORIDE 98 mmol/L (98-107); SODIUM 132 mmol/L (136-145)
[2022-03-16 13:57] LABS: CALCIUM 9.2 mg/dL (8.5-10.1)
[2022-03-16 13:58] LABS: ALBUMIN 3.5 g/dl (3.4-5.0); ANION GAP 11 MMOL/L (8-16); BLOOD UREA NITROGEN 54.4 mg/dL (7-18); CO2 23 mmol/L (21-32); GLUCOSE,RANDOM 297 mg/dL (74-106); MAGNESIUM 2.7 mg/dL (1.8-2.4)
[2022-03-16 14:00] LABS: CREATININE 2.1 mg/dL (0.55-1.3); SGPT/ALT 28 U/L (13-61)
[2022-03-16 14:01] LABS: BILIRUBIN,TOTAL 0.6 mg/dL (0.2-1); SGOT/AST 34 U/L (15-37)
[2022-03-16 14:02] LABS: TOT PROT 7.6 g/dl (6.4-8.2)
[2022-03-16 14:03] LABS: ALK PHOS 172 U/L (45-117)
[2022-03-16 14:22] LABS: N-TERMINAL BNP 33146.2 pg/ml (5-450)
[2022-03-16] MEDS ORDERED: HEPARIN NA (PORCINE) 5,000 UNITS/ML 1ML VIAL IVPUSH ONE (15:51)
[2022-03-16] MEDS ORDERED: HEPARIN - 25,000 UNIT in SODIUM CHLORIDE 495 ML IV SCH (16:00)
[2022-03-16] MEDS ORDERED: HEPARIN NA (PORCINE) 5,000 UNITS/ML 1ML VIAL ONE (16:41)
[2022-03-16] MEDS ORDERED: HEPARIN INFUSION - 25,000 UNITS/500 ML INFUS.BAG IVPB ONE (16:42)
[2022-03-16] MEDS ORDERED: MELATONIN 5 MG TABLETS PO PRN (18:18)
[2022-03-16] MEDS ORDERED: SODIUM CHLORIDE 1,000 ML IV SCH (18:30)
[2022-03-16] MEDS ORDERED: ATORVASTATIN CA 40 MG TABLET (FP) ONE (21:59)
[2022-03-16] MEDS ORDERED: ASCORBIC ACID 500 MG TABLET (FP) ONE (21:59)
[2022-03-16] MEDS ORDERED: ATORVASTATIN CA 40 MG TABLET (FP) PO SCH (22:00)
[2022-03-16] MEDS ORDERED: GABAPENTIN 100 MG CAPSULE PO SCH (22:00)
[2022-03-16] MEDS: ASCORBIC ACID 500 MG TABLET (FP) PO SCH (22:09)
[2022-03-16] MEDS: NYSTATIN 100,000 UNIT/GM TOPICAL CREAM 15 GM TUBE TP SCH (22:09)
[2022-03-16] MEDS: INSULIN SLIDING SCALE (NOVOLOG) 1 VIAL SQ SCH (22:09)
[2022-03-17 03:26] VITALS: BMI 19.2
[2022-03-17] MEDS: INSULIN SLIDING SCALE (NOVOLOG) 1 VIAL SQ SCH ×4 (06:17→22:35)
[2022-03-17] MEDS ORDERED: LEVOTHYROXINE NA 75 MCG TABLET (FP) PO SCH (07:00)
[2022-03-17 07:37] LABS: BASO % 0.6 % (0-2.0); EOS % 1.9 % (0-4.5); HEMATOCRIT 25.2 % (32.4-45.2); HEMOGLOBIN 8.5 GM/dL (10.7-15.3); LYMPH % 16.5 % (8-40); MCH 30.6 pg (25.7-33.7); MCHC 33.7 g/dl (32.0-36.0); MEAN CELL VOLUME 90.8 fl (80-96); MEAN PLT VOLUME 10.4 fl (7.5-11.1); MONO % 8.4 % (3.8-10.2); NEUT % 72.6 % (42.8-82.8); PLATELET COUNT 117 10^3/uL (134-434); RBC 2.78 M/mm3 (3.60-5.2); RDW 13.2 % (11.6-15.6); WHITE BLOOD COUNT 9.1 K/mm3 (4.0-10.0)
[2022-03-17 07:42] LABS: CALCIUM 8.3 mg/dL (8.5-10.1)
[2022-03-17 07:43] LABS: ALBUMIN 2.8 g/dl (3.4-5.0); BLOOD UREA NITROGEN 48.6 mg/dL (7-18); MAGNESIUM 2.5 mg/dL (1.8-2.4)
[2022-03-17 07:45] LABS: PHOSPHOROUS 3.7 mg/dL (2.5-4.9)
[2022-03-17 07:46] LABS: CREATININE 1.9 mg/dL (0.55-1.3)
[2022-03-17 07:47] LABS: BILIRUBIN,TOTAL 0.5 mg/dL (0.2-1); TOT PROT 6.2 g/dl (6.4-8.2)
[2022-03-17] MEDS ORDERED: SODIUM CHLORIDE 250 ML IV STA (08:30)
[2022-03-17] MEDS ORDERED: PANTOPRAZOLE 20 MG TABLET PO SCH (10:00)
[2022-03-17] MEDS ORDERED: CHOLECALCIFEROL (VIT D3) 1,000 UNIT (25 MCG) TABLET PO SCH (10:00)
[2022-03-17] MEDS ORDERED: EZETIMIBE 10 MG TABLET (FP) PO SCH (10:00)
[2022-03-17] MEDS ORDERED: metoPROLOL SUCCINATE 25 MG TAB.SR.24H (FP) PO SCH (10:00)
[2022-03-17] MEDS ORDERED: DONEPEZIL HCL 10 MG TABLET (FP) PO SCH (10:00)
[2022-03-17] MEDS: ASCORBIC ACID 500 MG TABLET (FP) PO SCH ×3 (10:10→23:31)
[2022-03-17] MEDS ORDERED: SODIUM CHLORIDE 1,000 ML IV SCH ×2 (11:15→15:12)
[2022-03-17] MEDS: NYSTATIN 100,000 UNIT/GM TOPICAL CREAM 15 GM TUBE TP SCH (12:21)
[2022-03-17] MEDS ORDERED: MELATONIN 5 MG TABLETS PO PRN (15:12)
[2022-03-17] MEDS ORDERED: HEPARIN - 25,000 UNIT in SODIUM CHLORIDE 495 ML IV SCH (15:12)
[2022-03-17] MEDS: MUPIROCIN 2% TOPICAL OINTMENT FOR DECOLONIZATION NS SCH ×2 (16:49→22:15)
[2022-03-17] MEDS ORDERED: CHLORHEXIDINE GLUCONATE 4% CLEANSER FOR DECOLONIZATION TP SCH (22:00)
[2022-03-17] MEDS ORDERED: NYSTATIN 100,000 UNIT/GM TOPICAL CREAM 15 GM TUBE TP SCH (22:00)
[2022-03-17] MEDS: ATORVASTATIN CA 40 MG TABLET (FP) PO SCH ×2 (22:15→23:30)
[2022-03-18 02:47] VITALS: TEMP 98.3
[2022-03-18 04:35] VITALS: BP 112/54; PULSE 74
[2022-03-18] MEDS ORDERED: LEVOTHYROXINE NA 75 MCG TABLET (FP) PO SCH (07:00)
[2022-03-18] MEDS ORDERED: EZETIMIBE 10 MG TABLET (FP) PO SCH (10:00)
[2022-03-18] MEDS ORDERED: PANTOPRAZOLE 20 MG TABLET PO SCH (10:00)
[2022-03-18] MEDS ORDERED: DONEPEZIL HCL 10 MG TABLET (FP) PO SCH (10:00)
[2022-03-18] MEDS ORDERED: CHOLECALCIFEROL (VIT D3) 1,000 UNIT (25 MCG) TABLET PO SCH (10:00)
== END 2022-03-18 05:20 | disposition short-term general hospital (02) | DRG 176 ==
LOC: JER 12:10 → JERBED 16:15 → J4W 22:41 → JICU 03-17 15:03
PROVIDERS: ADMIT Internal Medicine; ATTEND Internal Medicine
DX: I26.99 Other pulmonary embolism without acute cor pulmonale (principal); N17.9 Acute kidney failure, unspecified; I10 Essential (primary) hypertension; E11.9 Type 2 diabetes mellitus without complications; E03.9 Hypothyroidism, unspecified; J44.9 Chronic obstructive pulmonary disease, unspecified; E11.42 Type 2 diabetes mellitus with diabetic polyneuropathy; K21.9 Gastro-esophageal reflux disease without esophagitis; K57.90 Diverticulosis of intestine, part unspecified, without perforation or abscess without bleeding; D50.9 Iron deficiency anemia, unspecified; F03.90 Unspecified dementia, unspecified severity, without behavioral disturbance, psychotic disturbance, mood disturbance, and anxiety; I12.9 Hypertensive chronic kidney disease with stage 1 through stage 4 chronic kidney disease, or unspecified chronic kidney disease; E11.22 Type 2 diabetes mellitus with diabetic chronic kidney disease; N18.9 Chronic kidney disease, unspecified; E87.5 Hyperkalemia; H54.40 Blindness, one eye, unspecified eye; B35.3 Tinea pedis
CPT/HCPCS: 0241U-QW; 36415; 71045-TC-FY; 71275-TC; 80053; 82803; 82962; 83735; 83880; 84100; 84484; 85025; 85379; 85610; 85730; 93005; 93010; 93306-TC; 93970-TC; 99285-25; J1644; Q9967